=== PATIENT | male | born 1945 | race African-American/Black ===

== ENCOUNTER 2019-01-25 16:22 | Observation (INO) | payer OTHER, MEDICARE ==
--- NOTE | 2019-01-25 17:26 | ER Document Report ---
ED Medical Screen (RME) - General Chief Complaint: Shortness Of Breath Stated Complaint: BREATHING PROBLEMS Time Seen by Provider: 01/25/19 17:20 Mode of Arrival: Wheelchair Information source: Patient Notes: 73-year-old male presented to ED for complaint of shortness of breath and cough. He states he had the symptoms and [facility] started him on steroids and antibiotics. He states he did get feeling better then 3 days ago he got extremely short of breath again. He states he [facility] the [facility] today because he could not walk across the room without losing his breath. [facility] states that the [facility]. I have greeted and performed a rapid initial assessment of this patient. A comprehensive ED assessment and evaluation of the patient, analysis of test results and completion of medical decision making process will be conducted by an additional ED providers. Physical Exam - Vital signs Vitals: Temp Pulse Resp BP Pulse Ox 98.2 F 94 16 152/86 H 94 01/25/19 16:43 01/25/19 16:43 01/25/19 16:43 01/25/19 16:43 01/25/19 16:43 Course - Vital Signs Vital signs: Temp Pulse Resp BP Pulse Ox 98.2 F 94 16 152/86 H 94 01/25/19 16:43 01/25/19 16:43 01/25/19 16:43 01/25/19 16:43 01/25/19 16:43
[2019-01-25] MEDS ORDERED: ASPIRIN 81 MG TABLET, CHEWABLE PO ONE (17:28)
--- NOTE | 2019-01-25 17:59 | RADIOLOGY REPORT (SQ) ---
EXAM DESCRIPTION: CHEST 2 VIEWS COMPLETED DATE/TIME: 01/25/2019 5:44 pm REASON FOR STUDY: chest pain COMPARISON: None. EXAM PARAMETERS: NUMBER OF VIEWS: two views TECHNIQUE: Digital Frontal and Lateral radiographic views of the chest acquired. RADIATION DOSE: NA LIMITATIONS: none FINDINGS: LUNGS AND PLEURA: Chronic appearing calcific pleural plaques over the right lower chest. No gross acute infiltrates or pleural effusion. No pneumothorax. MEDIASTINUM AND HILAR STRUCTURES: No masses or contour abnormalities. HEART AND VASCULAR STRUCTURES: Borderline cardiomegaly BONES: No acute findings. HARDWARE: None in the chest. OTHER: No other significant finding. IMPRESSION: Chronic appearing right pleural calcific plaques. TECHNICAL DOCUMENTATION: JOB ID: [id number] [employer]- All Rights Reserved Reading location - IP/workstation name: [email or web address]
[2019-01-25 19:05] LABS: APPEARANCE,URINE CLEAR; BILIRUBIN,URINE NEGATIVE (NEGATIVE); COLOR,URINE YELLOW; GLUCOSE, URINE NEGATIVE (NEGATIVE); KETONES,URINE NEGATIVE (NEGATIVE); PROTEIN,URINE NEGATIVE (NEGATIVE); URINE SPECIFIC GRAVITY 1.009; UROBILINOGEN,URINE NEGATIVE mg/dL (<2.0)
[2019-01-25 19:10] LABS: ABSOLUTE BASOPHILS # (AUTO) 0.1 10^3/uL (0.0-0.2); ABSOLUTE EOSINOPHILS # (AUTO) 0.5 10^3/uL (0.0-0.6); ABSOLUTE LYMPHOCYTES (AUTO) 1.8 10^3/uL (0.5-4.7); ABSOLUTE NEUT (AUTO) 4.7 10^3/uL (1.7-8.2); EOSINOPHILS % (AUTO) 6.3 % (0-6); HEMATOCRIT 45.7 % (37.9-51.0); HEMOGLOBIN 15.6 g/dL (13.5-17.0); LYMPHOCYTES % (AUTO) 22.2 % (13-45); MEAN CORPUSCULAR HEMOGLOBIN 31.3 pg (27.0-33.4); MEAN CORPUSCULAR VOLUME 92 fl (80-97); MONOCYTES % (AUTO) 12.5 % (3-13); PLATELET COUNT 216 10^3/uL (150-450); RED BLOOD COUNT 4.97 10^6/uL (4.35-5.55); RED CELL DISTRIBUTION WIDTH 14.4 % (11.5-14.0); TOTAL CELLS COUNTED % (AUTO) 100 %; WHITE BLOOD COUNT 8.1 10^3/uL (4.0-10.5)
[2019-01-25 19:22] LABS: ALBUMIN 4.2 g/dL (3.5-5.0); ALKALINE PHOSPHATASE 76 U/L (38-126); ANION GAP 9 (5-19); ASPARTATE AMINO TRANSFERASE 31 U/L (17-59); BILIRUBIN,DIRECT 0.1 mg/dL (0.0-0.4); BILIRUBIN,TOTAL 0.8 mg/dL (0.2-1.3); BLOOD UREA NITROGEN 10 mg/dL (7-20); CALCIUM 9.4 mg/dL (8.4-10.2); CARBON DIOXIDE 28 mmol/L (22-30); CHLORIDE 104 mmol/L (98-107); GLUCOSE 99 mg/dL (75-110); POTASSIUM 4.3 mmol/L (3.6-5.0)
[2019-01-25 19:35] LABS: NT PRO BNP 29 pg/mL (<125)
[2019-01-25 19:36] LABS: TROPONIN I < 0.012 ng/mL
--- NOTE | 2019-01-25 20:44 | EKG REPORT ---
SEVERITY:- BORDERLINE ECG - SINUS RHYTHM IRBBB : Confirmed by: Marky Linder MD 25-Jan-2019 20:43:31
[2019-01-25] MEDS ORDERED: ALBUTEROL SULFATE 0.083% NEB 2.5 MG/3 ML AMPUL NEB ONE ×2 (21:01→22:35)
[2019-01-25] MEDS ORDERED: METHYLPREDNISOLONE INJ 125 MG/2 ML SDV IV ONE (21:01)
[2019-01-25] MEDS ORDERED: IPRATROPIUM/ALBUTEROL 0.5-2.5 MG/3 ML AMPUL NEB ONE (21:01)
--- NOTE | 2019-01-25 21:11 | ER Document Report ---
ED General - General Chief Complaint: Shortness Of Breath Stated Complaint: BREATHING PROBLEMS Time Seen by Provider: 01/25/19 17:20 Primary Care Provider: SHANNAN,CAMELIA [Primary Care Provider] - Follow up as needed Mode of Arrival: Wheelchair Notes: 73-year-old male presents emergency department complaining of worsening shortness of breath. Patient states that 2 to 3 weeks ago he developed chest congestion and tightness in his chest along with productive cough, he was treated with prednisone, antibiotics and an inhaler all of which improved his symptoms briefly but then they worsened 3 days ago. Patient states that he is now continuing to have chest congestion and tightness in his chest but denies any pain. Admits productive cough. Denies any fever. Denies any history of asthma or COPD. Patient was sent here by his primary care provider. - Related Data Allergies/Adverse Reactions: corn Adverse Reaction (Verified 01/25/19 17:25) orange Adverse Reaction (Verified 01/25/19 17:25) Past Medical History - General Information source: Patient - Social History Smoking Status: Never Smoker Frequency of alcohol use: None Drug Abuse: None Family History: Reviewed & Not Pertinent Patient has suicidal ideation: No Patient has homicidal ideation: No Pulmonary Medical History: Reports: Hx Asthma, Hx COPD Review of Systems - Review of Systems Constitutional: No symptoms reported EENT: Nose congestion, Nose discharge Cardiovascular: See HPI, Dyspnea. denies: Chest pain, Palpitations, Heart racing, Orthopnea, Syncope Respiratory: See HPI, Cough, Short of breath Gastrointestinal: No symptoms reported -: Yes All other systems reviewed and negative Physical Exam - Vital signs Vitals: Temp Pulse Resp BP Pulse Ox 98.2 F 94 16 152/86 H 94 01/25/19 16:43 01/25/19 16:43 01/25/19 16:43 01/25/19 16:43 01/25/19 16:43 Interpretation: Hypertensive - Notes Notes: GENERAL: Alert, interacts well. No acute distress. HEAD: Normocephalic, atraumatic EYES: Pupils equal, round and reactive to light, extraocular movements intact. ENT: Oral mucosa moist, tongue midline. NECK: Full range of motion, supple, trachea midline. LUNGS: Tachypnea, diffuse expiratory wheezing, occasional use of accessory muscles of respiration, wet cough, appears short of breath. HEART: Regular rate and rhythm, no murmurs, gallops, rubs. ABDOMEN: Soft, nontender, nondistended, bowel sounds present in all 4 quadrants. EXTREMITIES: Moves all 4 extremities spontaneously, trace pitting edema, radial and dorsalis pedis pulses 2/4 bilaterally. No cyanosis. NEUROLOGICAL: Alert and oriented x3, normal speech. PSYCH: Normal mood, normal affect. SKIN: Warm, Dry. Course - Re-evaluation Re-evalutation: 01/26/19 00:12 CBC unremarkable, CMP unremarkable, troponin negative, proBNP normal, urinalysis unremarkable, chest x-ray shows chronic right pleural plaquing. Patient is hypoxic on ambulation despite multiple breathing treatments. Mild persistent wheezing remains. Discussed with Dr. Carolina, admitted to the medical floor. - Vital Signs Vital signs: Temp Pulse Resp BP Pulse Ox 98.7 F 94 12 117/83 93 01/25/19 19:55 01/25/19 16:43 01/25/19 22:00 01/25/19 21:50 01/25/19 22:00 - Laboratory Result Diagrams: 01/25/19 18:30 01/25/19 18:30 Laboratory results interpreted by me: 01/25/19 18:30 RDW 14.4 H Eos % (Auto) 6.3 H - EKG Interpretation by Me Additional EKG results interpreted by me: 01/25/19 21:11 Hypokalemia EKG shows sinus rhythm at a rate 95, incomplete right bundle branch block, no ST segment elevations or depressions, isolated T wave inversions in V2, 1 PAC per my interpretation. Critical Care Note - Critical Care Note Total time excluding time spent on procedures (mins): 35 Discharge - Discharge Clinical Impression: Bronchitis with bronchospasm, Acute respiratory failure with hypoxia Condition: Fair Disposition: ADMITTED INPATIENT Admitting Provider: Ge (Hospitalist) Unit Admitted: Medical Floor [facility] - Follow up as needed
[2019-01-26] MEDS ORDERED: PROMETHAZINE HCL INJ 25 MG/1 ML VIAL IV PRN (01:19)
[2019-01-26] MEDS ORDERED: LEVALBUTEROL HCL NEB 0.63 MG/3 ML AMPUL NEB PRN (01:19)
[2019-01-26] MEDS ORDERED: MAG HYDROX/AL HYDROX/SIMETH SUSP 30 ML UDCUP PO PRN (01:19)
[2019-01-26] MEDS ORDERED: MAGNESIUM HYDROXIDE SUSP 30 ML UDCUP PO PRN (01:19)
[2019-01-26] MEDS ORDERED: HYDRALAZINE HCL INJ/PF 20 MG/1 ML SDV IV PRN (01:23)
[2019-01-26] MEDS ORDERED: ACETAMINOPHEN 325 MG TABLET PO PRN (01:23)
[2019-01-26] MEDS ORDERED: NICOTINE 21 MG/24 HR PATCH.TD24 TD PRN (01:23)
[2019-01-26] MEDS ORDERED: NALBUPHINE HCL INJ 10 MG/1 ML AMPULE IV PRN ×3 (01:23→01:49)
[2019-01-26] MEDS: METHYLPREDNISOLONE INJ 40 MG/1 ML SDV IV SCH ×3 (02:21→13:45)
[2019-01-26] MEDS ORDERED: GUAIFENESIN SYRP 200 MG/10 ML UDC PO PRN (02:26)
--- NOTE | 2019-01-26 04:52 | PDOC H&P ---
History of Present Illness Admission Date/PCP: 01/26/19 00:17 [facility] Patient complains of: Dyspnea History of Present Illness: COLEMAN WEINSTEIN is a 73 year old male who presented to the emergency room with a 3-week history of dyspnea. He admits to a gradually worsening dyspnea accompanied by chest congestion, nasal congestion, chest tightness and a cough productive of thick purulent yellow to green sputum over the course of the last 3 weeks. His dyspnea worsened with physical activity. [facility] was [facility] with an oral antibiotic, prednisone tablets and an inhaler which seemed to improve his symptoms, but after completion of his prescription 3 days ago he noted the return of symptoms with progressive worsening. He denies other associated or accompanying signs and symptoms. He denies prior similar episodes. He has not identified any additional aggravating or ameliorating factors for his dyspnea. In the emergency room he was found to have acute hypoxic respiratory failure and marked wheezing. He was treated with nebulizer therapy and steroids but continued to be hypoxic on exertion and was subsequently admitted to hospital for further evaluation treatment. Past Medical History Cardiac Medical History: Denies: Coronary Artery Disease, Hypertension Pulmonary Medical History: Reports: Asthma, Chronic Obstructive Pulmonary Disease (COPD) EENT Medical History: Denies: Cataracts, Ears - Hearing aids Neurological Medical History: Denies: Hemorrhagic CVA, Ischemic CVA, Seizures Endocrine Medical History: Reports: Obesity Denies: Diabetes Mellitus Type 1, Diabetes Mellitus Type 2, Hyperthyroidism, Hypothyroidism Renal/ Medical History: Denies: Chronic Kidney Disease, Nephrolithiasis Malignancy Medical History: Reports: None GI Medical History: Denies: Cirrhosis, Crohn's Disease, Hepatitis, Ulcerative Colitis Musculoskeltal Medical History: Denies: Arthritis, Fibromyalgia, Gout Skin Medical History: Denies: Eczema, Psoriasis Psychiatric Medical History: Denies: Alcohol Dependency, Substance Abuse, Tobacco Dependency Traumatic Medical History: Reports: None Hematology: Denies: Anemia, Bleeding Tendencies Infectious Medical History: Reports: None Past Surgical History Past Surgical History: Reports: None Social History Information Source: Patient Lives with: Friend Smoking Status: Never Smoker Electronic Cigarette use?: No Frequency of Alcohol Use: Rare Hx Recreational Drug Use: No Drugs: None Hx Prescription Drug Abuse: No - Advance Directive Resuscitation Status: Full Code Surrogate healthcare decision maker:: Teresa Evans Family History Family History: denies: CAD, DM, Hypertension, Malignancy Parental Family History Reviewed: Yes Children Family History Reviewed: No Sibling(s) Family History Reviewed.: Yes Medication/Allergy Allergies/Adverse Reactions: corn Adverse Reaction (Verified 01/25/19 17:25) orange Adverse Reaction (Verified 01/25/19 17:25) Review of Systems Constitutional: ABSENT: chills, fever(s) Eyes: ABSENT: visual disturbances, other - Eye pain Ears: ABSENT: hearing changes, other - Ear pain Nose, Mouth, and Throat: ABSENT: headache(s), mouth pain, sore throat Cardiovascular: PRESENT: as per HPI, dyspnea on exertion. ABSENT: chest pain, edema, orthropnea, palpitations Respiratory: PRESENT: as per HPI, cough, dyspnea, sputum. ABSENT: hemoptysis Gastrointestinal: ABSENT: abdominal pain, constipation, diarrhea, nausea, vomiting Genitourinary: ABSENT: dysuria, hematuria Musculoskeletal: ABSENT: back pain, joint swelling, muscle weakness Integumentary: ABSENT: pruritus, rash Neurological: ABSENT: confusion, convulsions, focal weakness, memory loss, syncope Psychiatric: ABSENT: anxiety, depression Endocrine: ABSENT: cold intolerance, heat intolerance Hematologic/Lymphatic: ABSENT: easy bleeding, easy bruising Allergic/Immunologic: ABSENT: seasonal rhinorrhea Physical Exam Vital Signs: Temp Pulse Resp BP Pulse Ox 98.5 F 103 H 19 154/86 H 93 01/26/19 01:02 01/26/19 01:02 01/26/19 01:02 01/26/19 01:02 01/26/19 01:02 Intake & Output 01/24/19 01/25/19 01/26/19 23:59 23:59 23:59 Weight 140.4 kg General appearance: PRESENT: no acute distress, cooperative, obese Head exam: PRESENT: atraumatic, normocephalic Eye exam: PRESENT: conjunctiva pink. ABSENT: conjunctival injection, scleral icterus Ear exam: PRESENT: normal external ear exam. ABSENT: bleeding, drainage Mouth exam: PRESENT: dry mucosa, neck supple Neck exam: ABSENT: thyromegaly, tracheal deviation Respiratory exam: PRESENT: prolonged expiratory phas - Minimally prolonged expiratory phase noted throughout all ag[place], symmetrical, wheezes - Minimal expiratory wheezes noted throughout all agudelo Cardiovascular exam: PRESENT: RRR. ABSENT: clicks, gallop, rubs Pulses: PRESENT: normal radial pulses, normal dorsalis pedis pul Vascular exam: PRESENT: normal capillary refill. ABSENT: pallor GI/Abdominal exam: PRESENT: normal bowel sounds, soft. ABSENT: tenderness Rectal exam: PRESENT: deferred Extremities exam: ABSENT: joint swelling, pedal edema Musculoskeletal exam: ABSENT: deformity, dislocation Neurological exam: PRESENT: alert, oriented to person, oriented to place, oriented to time, oriented to situation, CN II-XII grossly intact. ABSENT: motor sensory deficit Psychiatric exam: PRESENT: appropriate affect, normal mood Skin exam: PRESENT: dry, intact, warm. ABSENT: jaundice, rash, urticaria Results Laboratory Results: 01/25/19 18:30 01/25/19 18:30 01/25/19 01/25/19 01/25/19 18:15 18:30 18:30 WBC 8.1 RBC 4.97 Hgb 15.6 Hct 45.7 MCV 92 MCH 31.3 MCHC 34.0 RDW 14.4 H Plt Count 216 Seg Neutrophils % 58.0 Sodium 140.8 Potassium 4.3 Chloride 104 Carbon Dioxide 28 Anion Gap 9 BUN 10 Creatinine 0.98 Est GFR ( Amer) > 60 Glucose 99 Calcium 9.4 Magnesium 2.1 Total Bilirubin 0.8 AST 31 Alkaline Phosphatase 76 Total Protein 7.0 Albumin 4.2 Lipase 62.7 Urine Color YELLOW Urine Appearance CLEAR Urine pH 6.0 Ur Specific [place] 1.009 Urine Protein NEGATIVE Urine Glucose (UA) NEGATIVE Urine Ketones NEGATIVE Urine Blood NEGATIVE Urine RBC (Auto) 0 01/25/19 18:30 Troponin I < 0.012 NT-Pro-B Natriuret Pep 29 Impressions: Chest X-Ray 01/25/19 17:26 IMPRESSION: Chronic appearing right pleural calcific plaques. Assessment and Plan - Diagnosis (1) Bronchitis with bronchospasm Is this a current diagnosis for this admission?: Yes (2) Acute respiratory failure with hypoxia Is this a current diagnosis for this admission?: Yes (3) Cough Is this a current diagnosis for this admission?: Yes (4) Obesity (BMI 30-39.9) Is this a current diagnosis for this admission?: Yes - Plan Summary Summary: Patient is admitted to medical floor where he will receive routine supportive and symptomatic cares. He will be treated with an aggressive pulmonary toilet utilizing Xopenex, Atrovent and Pulmicort delivered via nebulizer. He will also be treated with a short burst dose of IV Solu-Medrol. He will receive supplemental oxygen as required to maintain an O2 sat greater than 93%. He will use Nubain 5 to 10 mg IV every 3 hours on an as-needed basis for control of any pain. He will receive Robitussin as needed for cough. A CBC and basic metabolic profile will be obtained as appropriate. - Time Time Spent with patient: 25-34 minutes Medications reviewed and adjusted accordingly: Yes Anticipated discharge: Home - Inpatient Certification Based on my medical assessment, after consideration of the patient's comorbidities, presenting symptoms, or acuity I expect that the services needed warrant INPATIENT care.: Yes I certify that my determination is in accordance with my understanding of Medicare's requirements for reasonable and necessary INPATIENT services [42 CFR 412.3e].: Yes Medical Necessity: Need Close Monitoring Due to Risk of Patient Decompensation, Need for Nebulizer Therapy and Monitoring of Response, Risk of Complication if Not Cared For in Hospital
[2019-01-26] MEDS: HEPARIN SOD (PORCINE) 5,000 UNIT/ML 1 ML VIAL SUBCUT SCH ×3 (05:25→22:20)
[2019-01-26] MEDS: LEVALBUTEROL HCL NEB 1.25 MG/3 ML AMPUL NEB SCH ×2 (08:23→17:59)
[2019-01-26] MEDS: BUDESONIDE NEB 0.5 MG/2 ML AMPUL NEB SCH ×2 (08:23→20:29)
[2019-01-26] MEDS: IPRATROPIUM BROMIDE 0.02% NEB 0.5 MG/2.5 ML AMPUL NEB SCH ×2 (08:25→17:59)
--- NOTE | 2019-01-26 08:39 | Progress Note ---
Provider Note Provider Note: 01/26/2019-patient june early a.m. I have evaluated patient will continue to follow make changes plan of care as necessary
[2019-01-26] MEDS: FAMOTIDINE 20 MG TABLET PO SCH ×2 (09:07→22:20)
[2019-01-26] MEDS: DOCUSATE SODIUM 100 MG CAPSULE PO SCH ×2 (09:07→17:13)
[2019-01-27] MEDS: IPRATROPIUM BROMIDE 0.02% NEB 0.5 MG/2.5 ML AMPUL NEB SCH ×2 (00:26→08:58)
[2019-01-27] MEDS: LEVALBUTEROL HCL NEB 1.25 MG/3 ML AMPUL NEB SCH ×2 (00:26→08:58)
[2019-01-27] MEDS: HEPARIN SOD (PORCINE) 5,000 UNIT/ML 1 ML VIAL SUBCUT SCH (05:18)
[2019-01-27 07:15] LABS: HEMATOCRIT 46.2 % (37.9-51.0); HEMOGLOBIN 15.6 g/dL (13.5-17.0); MEAN CORPUSCULAR HEMOGLOBIN 31.3 pg (27.0-33.4); MEAN CORPUSCULAR HGB CONC 33.7 g/dL (32.0-36.0); MEAN CORPUSCULAR VOLUME 93 fl (80-97); PLATELET COUNT 228 10^3/uL (150-450); RED BLOOD COUNT 4.97 10^6/uL (4.35-5.55); RED CELL DISTRIBUTION WIDTH 14.5 % (11.5-14.0); WHITE BLOOD COUNT 12.9 10^3/uL (4.0-10.5)
[2019-01-27 07:51] LABS: ANION GAP 12 (5-19); BLOOD UREA NITROGEN 14 mg/dL (7-20); CALCIUM 10.1 mg/dL (8.4-10.2); CARBON DIOXIDE 28 mmol/L (22-30); CHLORIDE 101 mmol/L (98-107); GLUCOSE 119 mg/dL (75-110); POTASSIUM 4.8 mmol/L (3.6-5.0)
[2019-01-27 08:39] VITALS: BP 160/98
--- NOTE | 2019-01-27 08:43 | PDOC DISCHARGE SUMMARY ---
Impression - Admit/DC Date/PCP Admission Date/Primary Care Provider: 01/26/19 00:17 [facility] Discharge Date: 01/27/19 - Discharge Diagnosis (1) Acute respiratory failure with hypoxia Is this a current diagnosis for this admission?: Yes (2) Bronchitis with bronchospasm Is this a current diagnosis for this admission?: Yes (3) Cough Is this a current diagnosis for this admission?: Yes (4) Obesity (BMI 30-39.9) Is this a current diagnosis for this admission?: Yes - Assessment Summary: Patient is admitted to medical floor where he will receive routine supportive and symptomatic cares. He will be treated with an aggressive pulmonary toilet utilizing Xopenex, Atrovent and Pulmicort delivered via nebulizer. He will also be treated with a short burst dose of IV Solu-Medrol. He will receive supplemental oxygen as required to maintain an O2 sat greater than 93%. He will use Nubain 5 to 10 mg IV every 3 hours on an as-needed basis for control of any pain. He will receive Robitussin as needed for cough. A CBC and basic metabolic profile will be obtained as appropriate. - Additional Information Resuscitation Status: Full Code Discharge Diet: As Tolerated Discharge Activity: Activity As Tolerated [facility]errals: [facility] [Primary Care Provider] - Follow up as needed Prescriptions: Prednisone [Deltasone 10 mg Tablet] 10 mg PO ASDIR PRN #21 tablet PRN Reason: Albuterol Sulfate [Proair Hfa Inhalation Aerosol 8.5 gm Mdi] 2 puff IH Q4 PRN #1 mdi PRN Reason: Home Medications: Albuterol Sulfate [Proair Hfa Inhalation Aerosol 8.5 gm Mdi] 2 puff IH Q4 PRN #1 mdi 01/27/19 Prednisone [Deltasone 10 mg Tablet] 10 mg PO ASDIR PRN #21 tablet 01/27/19 History of Present Illiness History of Present Illness: COLEMAN WEINSTEIN is a 73 year old male who presented to the ER with shortness of breath. Hospital Course Hospital Course: Patient presented emergency department with 3-week history of dyspnea. Patient states gradually worsened with the shortness of breath accompanied by chest congestion, nasal congestion, chest tightness and productive cough of thick purulent yellow to greenish sputum. States this dyspnea was worse with exertion. He was treated the [facility] oral antibiotics, prednisone tablets and inhaler which seemed to improve his symptoms but after completion of his prescriptions symptoms returned. He denied any other accompanying signs or symptoms. He was admitted for observation. Was given bronchodilators and steroids. Patient's presentation return home. He will have follow-up with primary care within 1 week. I have sent in a prescription for a prednisone Dosepak and pro-air. Physical Exam Vital Signs: Temp Pulse Resp BP Pulse Ox 97.6 F 81 16 160/98 H 94 01/27/19 08:00 01/27/19 08:00 01/27/19 08:00 01/27/19 08:00 01/27/19 08:00 Intake & Output 01/26/19 01/27/19 01/28/19 06:59 06:59 06:59 Intake Total 1216 Balance 1216 Weight 140 kg General appearance: PRESENT: no acute distress, well-developed, well-nourished Head exam: PRESENT: atraumatic, normocephalic Eye exam: PRESENT: conjunctiva pink, EOMI, PERRLA. ABSENT: scleral icterus Ear exam: PRESENT: normal external ear exam Mouth exam: PRESENT: moist, tongue midline Neck exam: ABSENT: carotid bruit, JVD, lymphadenopathy, thyromegaly Respiratory exam: PRESENT: clear to auscultation marysol. ABSENT: rales, rhonchi, wheezes Cardiovascular exam: PRESENT: RRR. ABSENT: diastolic murmur, rubs, systolic murmur Pulses: PRESENT: normal dorsalis pedis pul Vascular exam: PRESENT: normal capillary refill GI/Abdominal exam: PRESENT: normal bowel sounds, soft. ABSENT: distended, guarding, mass, organolmegaly, rebound, tenderness Rectal exam: PRESENT: deferred Extremities exam: PRESENT: full ROM. ABSENT: calf tenderness, clubbing, pedal edema Neurological exam: PRESENT: alert, awake, oriented to person, oriented to place, oriented to time, oriented to situation, CN II-XII grossly intact. ABSENT: motor sensory deficit Psychiatric exam: PRESENT: appropriate affect, normal mood. ABSENT: homicidal ideation, suicidal ideation Skin exam: PRESENT: dry, intact, warm. ABSENT: cyanosis, rash Results Laboratory Results: WBC 12.9 10^3/uL (4.0-10.5) H 01/27/19 06:59 RBC 4.97 10^6/uL (4.35-5.55) 01/27/19 06:59 Hgb 15.6 g/dL (13.5-17.0) 01/27/19 06:59 Hct 46.2 % (37.9-51.0) 01/27/19 06:59 MCV 93 fl (80-97) 01/27/19 06:59 MCH 31.3 pg (27.0-33.4) 01/27/19 06:59 MCHC 33.7 g/dL (32.0-36.0) 01/27/19 06:59 RDW 14.5 % (11.5-14.0) H 01/27/19 06:59 Plt Count 228 10^3/uL (150-450) 01/27/19 06:59 Lymph % (Auto) 22.2 % (13-45) 01/25/19 18:30 [place] % (Auto) 12.5 % (3-13) 01/25/19 18:30 Eos % (Auto) 6.3 % (0-6) H 01/25/19 18:30 Baso % (Auto) 1.0 % (0-2) 01/25/19 18:30 Absolute Neuts (auto) 4.7 10^3/uL (1.7-8.2) 01/25/19 18:30 Absolute Lymphs (auto) 1.8 10^3/uL (0.5-4.7) 01/25/19 18:30 Absolute Monos (auto) 1.0 10^3/uL (0.1-1.4) 01/25/19 18:30 Absolute Eos (auto) 0.5 10^3/uL (0.0-0.6) 01/25/19 18:30 Absolute Basos (auto) 0.1 10^3/uL (0.0-0.2) 01/25/19 18:30 Seg Neutrophils % 58.0 % (42-78) 01/25/19 18:30 Sodium 140.6 mmol/L (137-145) 01/27/19 06:59 Potassium 4.8 mmol/L (3.6-5.0) 01/27/19 06:59 Chloride 101 mmol/L (98-107) 01/27/19 06:59 Carbon Dioxide 28 mmol/L (22-30) 01/27/19 06:59 Anion Gap 12 (5-19) 01/27/19 06:59 BUN 14 mg/dL (7-20) 01/27/19 06:59 Creatinine 1.01 mg/dL (0.52-1.25) 01/27/19 06:59 Est GFR ( Amer) > 60 (>60) 01/27/19 06:59 Est GFR (MDRD) Non-Af > 60 (>60) 01/27/19 06:59 Glucose 119 mg/dL (75-110) H 01/27/19 06:59 Calcium 10.1 mg/dL (8.4-10.2) 01/27/19 06:59 Magnesium 2.4 mg/dL (1.6-2.3) H 01/27/19 06:59 Total Bilirubin 0.8 mg/dL (0.2-1.3) 01/25/19 18:30 Direct Bilirubin 0.1 mg/dL (0.0-0.4) 01/25/19 18:30 Neonat Total Bilirubin Not Reportable 01/25/19 18:30 Neonat Direct Bilirubin Not Reportable 01/25/19 18:30 Neonat Indirect Bili Not Reportable 01/25/19 18:30 AST 31 U/L (17-59) 01/25/19 18:30 ALT 40 U/L (<50) 01/25/19 18:30 Alkaline Phosphatase 76 U/L (38-126) 01/25/19 18:30 Troponin I < 0.012 ng/mL 01/25/19 18:30 NT-Pro-B Natriuret Pep 29 pg/mL (<125) 01/25/19 18:30 Total Protein 7.0 g/dL (6.3-8.2) 01/25/19 18:30 Albumin 4.2 g/dL (3.5-5.0) 01/25/19 18:30 Lipase 62.7 U/L (23-300) 01/25/19 18:30 Urine Color YELLOW 01/25/19 18:15 Urine Appearance CLEAR 01/25/19 18:15 Urine pH 6.0 (5.0-9.0) 01/25/19 18:15 Ur Specific [place] 1.009 01/25/19 18:15 Urine Protein NEGATIVE mg/dL (NEGATIVE) 01/25/19 18:15 Urine Glucose (UA) NEGATIVE mg/dL (NEGATIVE) 01/25/19 18:15 Urine Ketones NEGATIVE mg/dL (NEGATIVE) 01/25/19 18:15 Urine Blood NEGATIVE (NEGATIVE) 01/25/19 18:15 Urine Nitrite (Reflex) NEGATIVE (NEGATIVE) 01/25/19 18:15 Urine Bilirubin NEGATIVE (NEGATIVE) 01/25/19 18:15 Urine Urobilinogen NEGATIVE mg/dL (<2.0) 01/25/19 18:15 Leukocyte Esterase Rfl NEGATIVE (NEGATIVE) 01/25/19 18:15 Urine RBC (Auto) 0 /HPF 01/25/19 18:15 Urine WBC (Reflex) 2 /HPF 01/25/19 18:15 Squamous Epi Cells Auto <1 /HPF 01/25/19 18:15 Urine Mucus (Auto) RARE /LPF 01/25/19 18:15 Urine Ascorbic Acid NEGATIVE (NEGATIVE) 01/25/19 18:15 01/25/19 18:30 Troponin I < 0.012 NT-Pro-B Natriuret Pep 29 Impressions: Chest X-Ray 01/25/19 17:26 IMPRESSION: Chronic appearing right pleural calcific plaques. Plan Time Spent: Greater than 30 Minutes Stroke Is this a Stroke Patient?: No Acute Heart Failure - Is this a Heart Failure Patient?: No
[2019-01-27] MEDS: BUDESONIDE NEB 0.5 MG/2 ML AMPUL NEB SCH (08:58)
[2019-01-27] MEDS: FAMOTIDINE 20 MG TABLET PO SCH (10:49)
[2019-01-27] MEDS: DOCUSATE SODIUM 100 MG CAPSULE PO SCH (10:49)
== END 2019-01-27 12:30 | disposition home or self-care (01) ==
LOC: ER 16:22 → EH 01-26 00:17 → INTOOBSV 01-26 00:17 → 4S 01-26 01:58
PROVIDERS: ADMIT Emergency Medicine; ATTEND Emergency Medicine
DX: J96.01 Acute respiratory failure with hypoxia (principal); J20.9 Acute bronchitis, unspecified; E66.9 Obesity, unspecified; I45.10 Unspecified right bundle-branch block; E87.6 Hypokalemia; R03.0 Elevated blood-pressure reading, without diagnosis of hypertension; Z68.39 Body mass index [BMI] 39.0-39.9, adult
CPT/HCPCS: 93005; 94640 ×4; 99291; 96374; 36415 ×2; 83690; 83735 ×2; 85025; 85027; 80048; 80053; 81001; 84484; 83880; 71046; 93010; G0378 ×3; J2920; J2930; J3490 ×5; J7620

== ENCOUNTER 2019-02-17 15:24 | Inpatient (IN) | payer OTHER, MEDICARE ==
[2019-02-17] MEDS ORDERED: IPRATROPIUM/ALBUTEROL 0.5-2.5 MG/3 ML AMPUL NEB ONE (16:31)
[2019-02-17] MEDS ORDERED: METHYLPREDNISOLONE INJ 125 MG/2 ML SDV IV ONE (16:31)
--- NOTE | 2019-02-17 16:32 | ER Document Report ---
ED Medical Screen (RME) - General Chief Complaint: Shortness Of Breath Stated Complaint: TROUBLE BREATHIING Time Seen by Provider: 02/17/19 16:30 Primary Care Provider: CAMELIA CAMPBELL [Primary Care Provider] - Follow up as needed Information source: Patient Notes: Patient presents complaining of difficulty breathing with exertion for the past week. Patient reports occasional cough. Patient denies any chest pain or fever. Patient does report wheezing. Patient denies any significant medical history aside from hypertension although does report that he was recently admitted for breathing problems. Patient denies any history of asthma or COPD. I have greeted and performed a rapid initial assessment of this patient. A comprehensive ED assessment and evaluation of the patient, analysis of test results and completion of the medical decision making process will be conducted by additional ED providers. TRAVEL OUTSIDE OF THE [place] IN LAST 30 DAYS: No - Related Data Allergies/Adverse Reactions: corn Adverse Reaction (Verified 01/25/19 17:25) orange Adverse Reaction (Verified 01/25/19 17:25) Past Medical History - Past Medical History Cardiac Medical History: Denies: Hx Coronary Artery Disease, Hx Hypertension Pulmonary Medical History: Reports: Hx Asthma, Hx COPD Neurological Medical History: Denies: Hx Seizures Endocrine Medical History: Denies: Hx Diabetes Mellitus Type 1, Hx Diabetes Mellitus Type 2, Hx Hyperthyroidism, Hx Hypothyroidism GI Medical History: Denies: Hx Cirrhosis, Hx Crohn's Disease, Hx Hepatitis, Hx Ulcerative Colitis Musculoskeltal Medical History: Denies Hx Arthritis, Denies Hx Fibromyalgia, Denies Hx Gout Skin Medical History: Denies Hx Eczema, Denies Hx Psoriasis Infectious Medical History: Denies: Hx Hepatitis Physical Exam - Respiratory Respiratory status: Tachypnea. No: Labored Breath sounds: Nonproductive cough, Wheezing Doctor's Discharge - Discharge Referrals: [facility] [[facility]] - Follow up as needed
[2019-02-17] MEDS: ALBUTEROL SULFATE 0.083% NEB 2.5 MG/3 ML AMPUL NEB SCH ×2 (16:54→17:08)
--- NOTE | 2019-02-17 17:17 | RADIOLOGY REPORT (SQ) ---
EXAM DESCRIPTION: CHEST 2 VIEWS COMPLETED DATE/TIME: 02/17/2019 5:02 pm REASON FOR STUDY: cough, sob COMPARISON: 01/25/2019 TECHNIQUE: Frontal and lateral radiographic views of the chest acquired. NUMBER OF VIEWS: Two view. LIMITATIONS: None. FINDINGS: LUNGS AND PLEURA: No pneumothorax. No acute findings. Similar right pleural calcific thi ckening and bilateral parenchymal - interstitial changes. . MEDIASTINUM AND HILAR STRUCTURES: Stable. HEART AND VASCULAR STRUCTURES: Stable. BONES: No acute findings. HARDWARE: None in the chest. OTHER: No other significant finding. IMPRESSION: NO ACUTE FINDINGS. TECHNICAL DOCUMENTATION: JOB ID: [id number] [id number] 2010 [employer]- All Rights Reserved Reading location - IP/workstation name: [email or web address]
[2019-02-17 19:00] LABS: ABSOLUTE BASOPHILS # (AUTO) 0.1 10^3/uL (0.0-0.2); ABSOLUTE EOSINOPHILS # (AUTO) 0.4 10^3/uL (0.0-0.6); ABSOLUTE LYMPHOCYTES (AUTO) 1.4 10^3/uL (0.5-4.7); ABSOLUTE MONOCYTES (AUTO) 0.7 10^3/uL (0.1-1.4); BASOPHILS % (AUTO) 0.9 % (0-2); HEMATOCRIT 44.3 % (37.9-51.0); HEMOGLOBIN 15.1 g/dL (13.5-17.0); LYMPHOCYTES % (AUTO) 21.9 % (13-45); MEAN CORPUSCULAR HEMOGLOBIN 31.7 pg (27.0-33.4); MEAN CORPUSCULAR HGB CONC 34.1 g/dL (32.0-36.0); MEAN CORPUSCULAR VOLUME 93 fl (80-97); MONOCYTES % (AUTO) 10.8 % (3-13); PLATELET COUNT 198 10^3/uL (150-450); RED BLOOD COUNT 4.76 10^6/uL (4.35-5.55); RED CELL DISTRIBUTION WIDTH 14.7 % (11.5-14.0); SEGMENTED NEUTROPHILS % (AUTO) 60.4 % (42-78); TOTAL CELLS COUNTED % (AUTO) 100 %; WHITE BLOOD COUNT 6.6 10^3/uL (4.0-10.5)
[2019-02-17 19:11] LABS: ALBUMIN 4.1 g/dL (3.5-5.0); ALKALINE PHOSPHATASE 83 U/L (38-126); ANION GAP 9 (5-19); ASPARTATE AMINO TRANSFERASE 34 U/L (17-59); BILIRUBIN,DIRECT 0.2 mg/dL (0.0-0.4); BILIRUBIN,TOTAL 0.6 mg/dL (0.2-1.3); BLOOD UREA NITROGEN 14 mg/dL (7-20); CALCIUM 9.7 mg/dL (8.4-10.2); CARBON DIOXIDE 27 mmol/L (22-30); CHLORIDE 105 mmol/L (98-107); GLUCOSE 103 mg/dL (75-110); POTASSIUM 4.1 mmol/L (3.6-5.0); TOTAL PROTEIN 6.9 g/dL (6.3-8.2)
[2019-02-17 19:22] LABS: NT PRO BNP 32 pg/mL (<125)
[2019-02-17 19:24] LABS: TROPONIN I < 0.012 ng/mL
[2019-02-17] MEDS ORDERED: METHYLPREDNISOLONE INJ 125 MG/2 ML SDV ONE (19:33)
--- NOTE | 2019-02-17 19:51 | EKG REPORT ---
SEVERITY:- ABNORMAL ECG - SINUS RHYTHM EARLY TRANSITION, NEED TO CONSIDER OLD TRUE POST LA. : Confirmed by: Marky Linder MD 17-Feb-2019 19:51:03
[2019-02-17] MEDS ORDERED: ALBUTEROL SULFATE 0.083% NEB 2.5 MG/3 ML AMPUL NEB ONE (20:34)
--- NOTE | 2019-02-17 20:44 | ER Document Report ---
ED Respiratory Problem - General Chief Complaint: Shortness Of Breath Stated Complaint: TROUBLE BREATHIING Time Seen by Provider: 02/17/19 16:30 Primary Care Provider: SHANNAN,CAMELIA [Primary Care Provider] - Follow up as needed Mode of Arrival: Ambulatory Information source: Patient Notes: Patient presents complaining of difficulty breathing with exertion for the past week. Patient reports occasional cough but has noticed wheezing. Patient denies any chest pain or fever. Patient denies any history of lung problems although states he does have an inhaler to help when he has wheezing at home. TRAVEL OUTSIDE OF THE [place] IN LAST 30 DAYS: No - HPI Patient complains to provider of: Cough, Short of breath Onset: Last week Pain Level: Denies Context: denies: Recent immobilization, Recent surgery Cough: Nonproductive Associated symptoms: Cough, Short of breath, Wheezing. denies: Congestion Similar symptoms previously: Yes Recently seen / treated by doctor: Yes - Related Data Allergies/Adverse Reactions: corn Adverse Reaction (Verified 01/25/19 17:25) orange Adverse Reaction (Verified 01/25/19 17:25) Past Medical History - General Information source: Patient - Social History Smoking Status: Unknown if Ever Smoked Frequency of alcohol use: None Drug Abuse: None Lives with: Spouse/Significant other Family History: denies: CAD, DM, Hypertension, Malignancy Patient has suicidal ideation: No Patient has homicidal ideation: No - Past Medical History Cardiac Medical History: Reports: Hx Hypertension Pulmonary Medical History: Denies: Hx Asthma, Hx COPD - pt denies, Hx Intubation Neurological Medical History: Denies: Hx Seizures Endocrine Medical History: Denies: Hx Diabetes Mellitus Type 1, Hx Diabetes Mellitus Type 2, Hx Hyperthyroidism, Hx Hypothyroidism Skin Medical History: Denies Hx Eczema, Denies Hx Psoriasis Surgical Hx: Negative Review of Systems - Review of Systems Constitutional: No symptoms reported. denies: Fever, Recent illness EENT: No symptoms reported Cardiovascular: Dyspnea. denies: Chest pain Respiratory: Cough, Short of breath, Wheezing. denies: Hurts to breathe Gastrointestinal: No symptoms reported. denies: Abdominal pain, Vomiting Genitourinary: No symptoms reported Male Genitourinary: No symptoms reported Musculoskeletal: No symptoms reported. denies: Back pain Skin: No symptoms reported Hematologic/Lymphatic: No symptoms reported Neurological/Psychological: No symptoms reported Physical Exam - Vital signs Vitals: Temp Pulse Resp BP Pulse Ox 97.2 F 108 H 16 139/80 H 93 02/17/19 16:01 02/17/19 16:01 02/17/19 16:01 02/17/19 16:01 02/17/19 16:01 - General General appearance: Alert In distress: Mild - HEENT Head: Normocephalic, Atraumatic Eyes: Normal Conjunctiva: Normal Nasal: Normal Mouth/Lips: Normal Mucous membranes: Normal Neck: Normal, Supple. No: Lymphadenopathy - Respiratory Respiratory status: Labored, Tachypnea Chest status: Nontender Breath sounds: Nonproductive cough, Wheezing Chest palpation: Normal - Cardiovascular Rhythm: Regular Heart sounds: S1 appreciated, S2 appreciated Murmur: No - Abdominal Inspection: Morbidly Obese Distension: No distension Bowel sounds: Normal Tenderness: Nontender Organomegaly: No organomegaly - Back Back: Normal, Nontender - Extremities General upper extremity: Normal inspection, Normal strength General lower extremity: Edema - 1+ bilat, Normal strength - Neurological Neuro grossly intact: Yes Cognition: Normal Janice Coma Scale Eye Opening: Spontaneous Sanborn Coma Scale Verbal: Oriented Janice Coma Scale Motor: Obeys Commands Janice Coma Scale Total: 15 - Psychological Associated symptoms: Normal affect, Normal mood - Skin Skin Temperature: Warm Skin Moisture: Dry Skin Color: Normal Course - Re-evaluation Re-evalutation: 02/17/19 22:44 Patient continues with tachypnea and diffuse bilateral wheezing. Patient states that he feels as though he is breathing somewhat easier although denies any resolution of the wheezing symptoms. 02/17/19 23:[address] in the hallway, oxygen saturation dropped to 89% and heart rate increased to 115 with continued tachypnea. Consulted with hospitalist, Dr. Langley, for admission who agrees to accept patient as a telemetry observation at this time. - Vital Signs Vital signs: Temp Pulse Resp BP Pulse Ox 98 F 108 H 24 H 149/93 H 97 02/17/19 20:39 02/17/19 16:01 02/17/19 20:25 02/17/19 20:25 02/17/19 20:25 - Laboratory Result Diagrams: 02/17/19 18:39 02/17/19 18:39 Laboratory results interpreted by me: 02/17/19 02/17/19 02/17/19 18:39 18:39 18:39 RDW 14.7 H D-Dimer 0.54 H ABG pO2 ABG HCO3 ABG Total CO2 Est GFR (MDRD) Non-Af 59 L 02/17/19 21:10 RDW D-Dimer ABG pO2 74.6 L ABG HCO3 26.1 H ABG Total CO2 27.5 H Est GFR (MDRD) Non-Af 02/17/19 23:05 Labs- Entire Visit 02/17/19 02/17/19 02/17/19 18:39 18:39 18:39 WBC 6.6 RBC 4.76 Hgb 15.1 Hct 44.3 MCV 93 MCH 31.7 MCHC 34.1 RDW 14.7 H Plt Count 198 Lymph % (Auto) 21.9 [place] % (Auto) 10.8 Eos % (Auto) 6.0 Baso % (Auto) 0.9 Absolute Neuts (auto) 4.0 Absolute Lymphs (auto) 1.4 Absolute Monos (auto) 0.7 Absolute Eos (auto) 0.4 Absolute Basos (auto) 0.1 Seg Neutrophils % 60.4 D-Dimer Carbonic Acid HCO3/H2CO3 Ratio ABG pH ABG pCO2 ABG pO2 ABG HCO3 ABG Total CO2 ABG O2 Saturation ABG Base Excess FiO2 Sodium 140.7 Potassium 4.1 Chloride 105 Carbon Dioxide 27 Anion Gap 9 BUN 14 Creatinine 1.21 Est GFR ( Amer) > 60 Est GFR (MDRD) Non-Af 59 L Glucose 103 Calcium 9.7 Total Bilirubin 0.6 Direct Bilirubin 0.2 Neonat Total Bilirubin Not Reportable Neonat Direct Bilirubin Not Reportable Neonat Indirect Bili Not Reportable AST 34 ALT 32 Alkaline Phosphatase 83 Troponin I < 0.012 NT-Pro-B Natriuret Pep 32 Total Protein 6.9 Albumin 4.1 02/17/19 02/17/19 02/17/19 18:39 21:10 22:11 WBC RBC Hgb Hct MCV MCH MCHC RDW Plt Count Lymph % (Auto) [place] % (Auto) Eos % (Auto) Baso % (Auto) Absolute Neuts (auto) Absolute Lymphs (auto) Absolute Monos (auto) Absolute Eos (auto) Absolute Basos (auto) Seg Neutrophils % D-Dimer 0.54 H Carbonic Acid 1.33 HCO3/H2CO3 Ratio 19:1 ABG pH 7.39 ABG pCO2 44.2 ABG pO2 74.6 L ABG HCO3 26.1 H ABG Total CO2 27.5 H ABG O2 Saturation 94.8 ABG Base Excess 0.8 FiO2 ROOM AIR Sodium Potassium Chloride Carbon Dioxide Anion Gap BUN Creatinine Est GFR ( Amer) Est GFR (MDRD) Non-Af Glucose Calcium Total Bilirubin Direct Bilirubin Neonat Total Bilirubin Neonat Direct Bilirubin Neonat Indirect Bili AST ALT Alkaline Phosphatase Troponin I < 0.012 NT-Pro-B Natriuret Pep Total Protein Albumin - Diagnostic Test Radiology reviewed: Reports reviewed Discharge - Discharge Clinical Impression: Bronchitis, Wheezing, Hypoxia Condition: Stable Disposition: ADMITTED OBSERVATION Admitting Provider: Shivam (Hospitalist) Unit Admitted: Telemetry [facility]errals: [facility] [[facility] - Follow up as needed
[2019-02-17 21:40] LABS: ARTERIAL BLOOD BASE EXCESS 0.8 mmol/L; ARTERIAL BLOOD H2CO3 1.33 mmol/L (1.05-1.35); ARTERIAL BLOOD HCO3 26.1 mmol/L (20-24); ARTERIAL BLOOD O2 SATURATION 94.8 % (94-98); ARTERIAL BLOOD PCO2 44.2 mmHg (35-45); ARTERIAL BLOOD PH 7.39 (7.35-7.45); ARTERIAL BLOOD PO2 74.6 mmHg (80-100); ARTERIAL BLOOD TOTAL CO2 27.5 mmol/L (23-27)
[2019-02-17 21:43] LABS: ARTERIAL BLOOD FIO2 ROOM AIR
[2019-02-17] MEDS ORDERED: LEVALBUTEROL HCL NEB 1.25 MG/3 ML AMPUL NEB ONE (21:48)
[2019-02-17] MEDS ORDERED: MAGNESIUM SULFATE/D5W 1 GM/100 ML RTUPB IV ONE (22:44)
--- NOTE | 2019-02-17 23:17 | RADIOLOGY REPORT (SQ) ---
EXAM DESCRIPTION: CT CHEST WITH INTRAVENOUS CONTRAST CLINICAL HISTORY: Dyspnea and elevated d-dimer. COMPARISON: None TECHNIQUE: CT of the chest was performed with intravenous contrast using pulmonary embolism protocol, followed by CTA of the pulmonary arterial vasculature, with 3D reconstruction of the pulmonary arterial vasculature. The patient was injected with 65 mL [address]aque. This CT exam was performed according to our departmental dose-optimization program, which includes one or more of the following dose reduction techniques: automated exposure control, adjustment of the mA and/or kV according to patient size, and/or use of iterative reconstruction technique. FINDINGS: Examination is technically limited by the timing of the contrast bolus. There are no filling defects in the main pulmonary trunk, first order or the visualized lower order branches of the bilateral pulmonary arteries, to suggest pulmonary embolism. There is no evidence of clinically significant thoracic aortic aneurysm or thoracic aortic dissection. There is no evidence of clinically significant pericardial effusion. There is relative volume loss of the right hemithorax compared with the left side. Furthermore, there is coarsely calcified pleural thickening predominantly affecting the posterior lateral right pleura. There is no pathologically enlarged axillary, supraclavicular, mediastinal or hilar lymphadenopathy. Calcified left hilar lymph nodes. No suspicious lytic or blastic osseous lesions are identified. The visualized upper abdominal structures demonstrate cholelithiasis. There is likely bilateral renal cortical scarring, incompletely visualized. A small splenule is incidentally noted. IMPRESSION: 1. No CT evidence of significant pulmonary embolism within the technical limitations of this exam. 2. Volume loss of the right hemithorax associated with slightly calcified pleural thickening. Clinical correlation is advised. Consider the possibility of prior asbestos dose exposure.
[2019-02-17] MEDS ORDERED: GUAIFENESIN SYRP 200 MG/10 ML UDC PO PRN (23:57)
[2019-02-17] MEDS ORDERED: ACETAMINOPHEN 325 MG TABLET PO PRN (23:57)
[2019-02-17] MEDS ORDERED: IPRATROPIUM/ALBUTEROL 0.5-2.5 MG/3 ML AMPUL NEB PRN (23:57)
[2019-02-18] MEDS ORDERED: PREDNISONE 20 MG TABLET PO ONE (00:30)
[2019-02-18] MEDS: CHLORPHENIRAMINE MALEATE 4 MG TABLET PO SCH ×4 (00:40→17:11)
[2019-02-18] MEDS: IPRATROPIUM/ALBUTEROL 0.5-2.5 MG/3 ML AMPUL NEB SCH ×3 (00:45→16:20)
[2019-02-18] MEDS ORDERED: AZITHROMYCIN 500 MG in DEXTROSE 5%-WATER 250 ML IV ONE (01:00)
[2019-02-18] MEDS ORDERED: AZITHROMYCIN INJ 500 MG VIAL IV ONE (03:26)
--- NOTE | 2019-02-18 05:30 | PDOC H&P ---
History of Present Illness Admission Date/PCP: 02/18/19 00:[facility] Patient complains of: Shortness of breath and cough History of Present Illness: COLEMAN WEINSTEIN is a 74 year old male with a past medical history of COPD and bronchitis requiring hospitalization 3 weeks ago. He presents with wheeze, exertional dyspnea, rhinorrhea, postnasal drip, shortness of breath. In the emergency department he is found to have hypoxia, tachycardia and leukocytosis. CT reveals calcified pleura without infiltrate or pulmonary emboli. He receives empiric antibiotics for healthcare associated pneumonia and referred to the hospitalist for admission. Past Medical History Cardiac Medical History: Reports: Hypertension Denies: Coronary Artery Disease Pulmonary Medical History: Reports: Bronchitis Denies: Asthma, Chronic Obstructive Pulmonary Disease (COPD) - pt denies, Intubation Neurological Medical History: Denies: Seizures Endocrine Medical History: Denies: Diabetes Mellitus Type 1, Diabetes Mellitus Type 2, Hyperthyroidism, Hypothyroidism GI Medical History: Denies: Cirrhosis, Crohn's Disease, Hepatitis, Ulcerative Colitis Musculoskeltal Medical History: Denies: Arthritis, Fibromyalgia, Gout Skin Medical History: Denies: Eczema, Psoriasis Psychiatric Medical History: Reports: None Hematology: Denies: Anemia, Bleeding Tendencies Social History Information Source: Patient, [facility] Records Lives with: Spouse/Significant other Smoking Status: Never Smoker Frequency of Alcohol Use: Rare Hx Recreational Drug Use: No Drugs: None Hx Prescription Drug Abuse: No - Advance Directive Resuscitation Status: Full Code Family History Family History: denies: CAD, DM, Hypertension, Malignancy Parental Family History Reviewed: Yes Children Family History Reviewed: Yes Sibling(s) Family History Reviewed.: Yes Medication/Allergy Home Medications: Albuterol Sulfate [Albuterol Sulfate Hfa] 2 puff IH Q4H #1 hfa.[email or web address].ad 01/28/19 Allergies/Adverse Reactions: corn Adverse Reaction (Verified 01/25/19 17:25) orange Adverse Reaction (Verified 01/25/19 17:25) Review of Systems Constitutional: ABSENT: chills, fever(s), headache(s), weight gain, weight loss Eyes: ABSENT: visual disturbances Ears: ABSENT: hearing changes Cardiovascular: ABSENT: chest pain, dyspnea on exertion, edema, orthropnea, palpitations Respiratory: ABSENT: cough, hemoptysis Gastrointestinal: ABSENT: abdominal pain, constipation, diarrhea, hematemesis, hematochezia, nausea, vomiting Genitourinary: ABSENT: dysuria, hematuria Musculoskeletal: ABSENT: joint swelling Integumentary: ABSENT: rash, wounds Neurological: ABSENT: abnormal gait, abnormal speech, confusion, dizziness, focal weakness, syncope Psychiatric: ABSENT: anxiety, depression, homidical ideation, suicidal ideation Endocrine: ABSENT: cold intolerance, heat intolerance, polydipsia, polyuria Hematologic/Lymphatic: ABSENT: easy bleeding, easy bruising Physical Exam Vital Signs: Temp Pulse Resp BP Pulse Ox 98.4 F 103 H 18 140/74 H 90 L 02/18/19 03:38 02/18/19 03:38 02/18/19 03:38 02/18/19 03:38 02/18/19 03:38 Intake & Output 02/16/19 02/17/19 02/18/19 11:59 11:59 11:59 Intake Total 100 Balance 100 Weight 137.1 kg General appearance: PRESENT: cooperative, mild distress, well-developed, well- nourished. ABSENT: no acute distress Head exam: PRESENT: atraumatic, normocephalic Eye exam: PRESENT: conjunctiva pink, EOMI, PERRLA. ABSENT: scleral icterus Ear exam: PRESENT: normal external ear exam Mouth exam: PRESENT: moist, tongue midline Neck exam: ABSENT: carotid bruit, JVD, lymphadenopathy, thyromegaly Respiratory exam: PRESENT: accessory muscle use, decreased breath sounds, prolonged expiratory phas, retraction, symmetrical, wheezes Cardiovascular exam: PRESENT: tachycardia. ABSENT: diastolic murmur, rubs, systolic murmur Pulses: PRESENT: normal dorsalis pedis pul Vascular exam: PRESENT: normal capillary refill GI/Abdominal exam: PRESENT: normal bowel sounds, soft. ABSENT: distended, guarding, mass, organolmegaly, rebound, tenderness Rectal exam: PRESENT: deferred Extremities exam: PRESENT: full ROM. ABSENT: calf tenderness, clubbing, pedal edema Neurological exam: PRESENT: alert, awake, oriented to person, oriented to place, oriented to time, oriented to situation, CN II-XII grossly intact. ABSENT: motor sensory deficit Psychiatric exam: PRESENT: appropriate affect, normal mood. ABSENT: homicidal ideation, suicidal ideation Skin exam: PRESENT: dry, intact, warm. ABSENT: cyanosis, rash Results Laboratory Results: 02/17/19 18:39 02/17/19 18:39 02/17/19 02/17/19 02/17/19 18:39 18:39 21:10 WBC 6.6 RBC 4.76 Hgb 15.1 Hct 44.3 MCV 93 MCH 31.7 MCHC 34.1 RDW 14.7 H Plt Count 198 Seg Neutrophils % 60.4 Carbonic Acid 1.33 HCO3/H2CO3 Ratio 19:1 ABG pH 7.39 ABG pCO2 44.2 ABG pO2 74.6 L ABG HCO3 26.1 H ABG O2 Saturation 94.8 ABG Base Excess 0.8 FiO2 ROOM AIR Sodium 140.7 Potassium 4.1 Chloride 105 Carbon Dioxide 27 Anion Gap 9 BUN 14 Creatinine 1.21 Est GFR ( Amer) > 60 Glucose 103 Calcium 9.7 Total Bilirubin 0.6 AST 34 Alkaline Phosphatase 83 Total Protein 6.9 Albumin 4.1 02/17/19 02/17/19 18:39 22:11 Troponin I < 0.012 < 0.012 NT-Pro-B Natriuret Pep 32 Impressions: Chest X-Ray 02/17/19 16:31 IMPRESSION: NO ACUTE FINDINGS. Chest/Abdomen CTA 02/17/19 21:09 IMPRESSION: 1. No CT evidence of significant pulmonary embolism within the technical limitations of this exam. 2. Volume loss of the right hemithorax associated with slightly calcified pleural thickening. Clinical correlation is advised. Consider the possibility of prior asbestos dose exposure. Assessment and Plan - Diagnosis (1) Atypical pneumonia Is this a current diagnosis for this admission?: Yes Plan: Atypical pneumonia complicated by rhinorrhea, recent hospitalization and pleural calcification. Empiric antibiotics, albuterol and Atrovent, (2) Rhinorrhea Is this a current diagnosis for this admission?: Yes Plan: Flonase (3) Acute respiratory failure with hypoxia Is this a current diagnosis for this admission?: Yes Plan: Secondary to #1, supplemental oxygen, incentive spirometry and flutter valve (4) Pleural calcification Is this a current diagnosis for this admission?: Yes Plan: Outpatient pulmonology consult - Time Time Spent with patient: 25-34 minutes - Inpatient Certification Medical Necessity: Need Close Monitoring Due to Risk of Patient Decompensation
[2019-02-18 05:53] LABS: ABSOLUTE LYMPHOCYTES (AUTO) 0.4 10^3/uL (0.5-4.7); ABSOLUTE MONOCYTES (AUTO) 0.1 10^3/uL (0.1-1.4); ABSOLUTE NEUT (AUTO) 4.4 10^3/uL (1.7-8.2); BASOPHILS % (AUTO) 0.5 % (0-2); EOSINOPHILS % (AUTO) 0.1 % (0-6); HEMATOCRIT 43.6 % (37.9-51.0); HEMOGLOBIN 14.9 g/dL (13.5-17.0); LYMPHOCYTES % (AUTO) 8.1 % (13-45); MEAN CORPUSCULAR HEMOGLOBIN 31.9 pg (27.0-33.4); MEAN CORPUSCULAR HGB CONC 34.1 g/dL (32.0-36.0); MEAN CORPUSCULAR VOLUME 94 fl (80-97); MONOCYTES % (AUTO) 1.2 % (3-13); PLATELET COUNT 192 10^3/uL (150-450); RED BLOOD COUNT 4.67 10^6/uL (4.35-5.55); RED CELL DISTRIBUTION WIDTH 14.6 % (11.5-14.0); SEGMENTED NEUTROPHILS % (AUTO) 90.1 % (42-78); TOTAL CELLS COUNTED % (AUTO) 100 %; WHITE BLOOD COUNT 4.9 10^3/uL (4.0-10.5)
[2019-02-18] MEDS: HEPARIN SOD (PORCINE) 5,000 UNIT/ML 1 ML VIAL SUBCUT SCH ×2 (05:58→13:41)
[2019-02-18 06:04] LABS: ANION GAP 14 (5-19); BLOOD UREA NITROGEN 15 mg/dL (7-20); CALCIUM 9.7 mg/dL (8.4-10.2); CARBON DIOXIDE 22 mmol/L (22-30); CHLORIDE 104 mmol/L (98-107); GLUCOSE 185 mg/dL (75-110); POTASSIUM 4.7 mmol/L (3.6-5.0)
[2019-02-18] MEDS: PREDNISONE 20 MG TABLET PO SCH ×2 (09:41→17:11)
[2019-02-18] MEDS ORDERED: AZITHROMYCIN 500 MG in DEXTROSE 5%-WATER 250 ML IV SCH (10:00)
[2019-02-18] MEDS: FLUTICASONE NASAL SPRAY 50 MCG/SPRY 120 SPRAY/16 GM NASL SCH ×2 (11:25→22:01)
[2019-02-18] MEDS ORDERED: DILTIAZEM HCL INJ 25 MG/5 ML VIAL IV ONE ×2 (13:00→15:30)
[2019-02-18] MEDS ORDERED: NORMAL SALINE 1000 ML 1,000 ML IV ONE (13:00)
--- NOTE | 2019-02-18 14:01 | EKG REPORT ---
SEVERITY:- ABNORMAL ECG - ATRIAL FIBRILLATION, V-RATE 86-152 BORDERLINE PROLONGED QT INTERVAL INCOMPLETE RBBB CONSIDER OLD TRUE POST [place] : Confirmed by: Marky Linder MD 18-Feb-2019 14:00:46
[2019-02-18] MEDS ORDERED: DILTIAZEM HCL 30 MG TABLET PO SCH (18:00)
[2019-02-18] MEDS ORDERED: DIGOXIN INJ 0.5 MG/2 ML AMPULE IV ONE (18:45)
--- NOTE | 2019-02-18 18:59 | PDOC PROGRESS REPORT ---
Subjective Progress Note for:: 02/18/19 Subjective:: The patient is a 74-year-old male with a past medical history of COPD, bronchitis, hypertension who was admitted 02/17/2019 for atypical pneumonia. Patient was seen on morning rounds. He was found sitting up to the recliner, comfortably, on supplemental oxygen via nasal cannula. He is not home O2 dependent. He reports that his breathing is significantly better; does have slight shortness of breath and up to the restroom. He does continue to have a productive cough. Overall improved. He denies fever, chills, chest pain, palpitations, abdominal pain, nausea vo miting diarrhea. He had no other questions or concerns at that time. Approximately 1 hour after my visit, I received report from nursing staff reporting that the patient had taken an [id number] energy supplement and was now showing atrial fibrillation on telemetry with an elevated heart rate of 120. He received IV fluid boluses, increased maintenance IV fluids, and diltiazem push without effect. Ultimately he was upgraded to IMCU for diltiazem drip. Reason For Visit: COPDEXACERBATION ACUTE BRONCHITIS Physical Exam Vital Signs: Temp Pulse Resp BP Pulse Ox 97.3 F 145 H 18 147/78 H 93 02/18/19 16:00 02/18/19 18:24 02/18/19 16:22 02/18/19 16:00 02/18/19 16:22 Intake & Output 02/17/19 02/18/19 02/19/19 06:59 06:59 06:59 Intake Total 350 1579 Balance 350 1579 Weight 137.1 kg General appearance: PRESENT: no acute distress, cooperative, obese, well- developed, well-nourished Head exam: PRESENT: atraumatic, normocephalic Eye exam: PRESENT: conjunctiva pink, EOMI, PERRLA. ABSENT: scleral icterus Ear exam: PRESENT: normal external ear exam Mouth exam: PRESENT: moist, tongue midline Respiratory exam: PRESENT: rhonchi, symmetrical, unlabored, other - Supplemental oxygen by nasal cannula. ABSENT: rales, wheezes Cardiovascular exam: PRESENT: RRR, +S1, +S2. ABSENT: diastolic murmur, rubs, systolic murmur Pulses: PRESENT: normal dorsalis pedis pul Vascular exam: PRESENT: normal capillary refill GI/Abdominal exam: PRESENT: normal bowel sounds, soft. ABSENT: distended, guarding, mass, organolmegaly, rebound, tenderness Rectal exam: PRESENT: deferred Extremities exam: PRESENT: full ROM. ABSENT: calf tenderness, clubbing, pedal edema Neurological exam: PRESENT: alert, awake, oriented to person, oriented to place, oriented to time, oriented to situation, CN II-XII grossly intact. ABSENT: motor sensory deficit Psychiatric exam: PRESENT: appropriate affect, normal mood. ABSENT: homicidal ideation, suicidal ideation Skin exam: PRESENT: dry, intact, warm. ABSENT: cyanosis, rash Results Laboratory Results: 02/18/19 05:00 02/18/19 05:00 02/17/19 02/17/19 02/17/19 18:39 18:39 21:10 WBC 6.6 RBC 4.76 Hgb 15.1 Hct 44.3 MCV 93 MCH 31.7 MCHC 34.1 RDW 14.7 H Plt Count 198 Seg Neutrophils % 60.4 Carbonic Acid 1.33 HCO3/H2CO3 Ratio 19:1 ABG pH 7.39 ABG pCO2 44.2 ABG pO2 74.6 L ABG HCO3 26.1 H ABG O2 Saturation 94.8 ABG Base Excess 0.8 FiO2 ROOM AIR Sodium 140.7 Potassium 4.1 Chloride 105 Carbon Dioxide 27 Anion Gap 9 BUN 14 Creatinine 1.21 Est GFR ( Amer) > 60 Glucose 103 Calcium 9.7 Total Bilirubin 0.6 AST 34 Alkaline Phosphatase 83 Total Protein 6.9 Albumin 4.1 02/18/19 02/18/19 05:00 05:00 WBC 4.9 RBC 4.67 Hgb 14.9 Hct 43.6 MCV 94 MCH 31.9 MCHC 34.1 RDW 14.6 H Plt Count 192 Seg Neutrophils % 90.1 H Carbonic Acid HCO3/H2CO3 Ratio ABG pH ABG pCO2 ABG pO2 ABG HCO3 ABG O2 Saturation ABG Base Excess FiO2 Sodium 139.9 Potassium 4.7 Chloride 104 Carbon Dioxide 22 Anion Gap 14 BUN 15 Creatinine 0.99 Est GFR ( Amer) > 60 Glucose 185 H Calcium 9.7 Total Bilirubin AST Alkaline Phosphatase Total Protein Albumin 02/17/19 02/17/19 18:39 22:11 Troponin I < 0.012 < 0.012 NT-Pro-B Natriuret Pep 32 Impressions: Chest X-Ray 02/17/19 16:31 IMPRESSION: NO ACUTE FINDINGS. Chest/Abdomen CTA 02/17/19 21:09 IMPRESSION: 1. No CT evidence of significant pulmonary embolism within the technical limitations of this exam. 2. Volume loss of the right hemithorax associated with slightly calcified pleural thickening. Clinical correlation is advised. Consider the possibility of prior asbestos dose exposure. Assessment and Plan - Diagnosis (1) Atrial fibrillation with RVR Is this a current diagnosis for this admission?: Yes Plan: Secondary to [id number] energy supplement. Received IV fluid bolus; continue maintenance fluids. Received diltiazem 20 mg IV push x2 without effect. Change albuterol to Xopenex. Patient is upgraded to IMCU on continuous cardiac telemetry. Start diltiazem drip. Continue daily aspirin therapy. Full dose Lovenox. (2) Atypical pneumonia Is this a current diagnosis for this admission?: Yes Plan: Atypical pneumonia complicated by rhinorrhea, recent hospitalization and pleural calcification. Continue empiric azithromycin. Supplemental oxygen as needed to meet saturations. Schedule and as needed nebulizer treatments. Pulmonary toilet (3) Pleural calcification Is this a current diagnosis for this admission?: Yes Plan: Outpatient pulmonology consult (4) Rhinorrhea Is this a current diagnosis for this admission?: Yes Plan: Flonase (5) Acute respiratory failure with hypoxia Is this a current diagnosis for this admission?: Yes Plan: Secondary to #1, supplemental oxygen, nebs, incentive spirometry and flutter valve - Time Time Spent with patient: 35 or more minutes Medications reviewed and adjusted accordingly: Yes Anticipated discharge: Home
[2019-02-18] MEDS: DILTIAZEM HCL/D5W 125 MG/125 ML RTUINJ IV PRN (19:33)
[2019-02-18] MEDS ORDERED: ENOXAPARIN SODIUM INJ 150 MG/1 ML DISP.SYRIN SUBCUT ONE (21:00)
[2019-02-18] MEDS: ASPIRIN 81 MG TABLET, CHEWABLE PO SCH (21:44)
[2019-02-19] MEDS: LEVALBUTEROL HCL NEB 1.25 MG/3 ML AMPUL NEB SCH ×3 (01:02→15:39)
[2019-02-19] MEDS: IPRATROPIUM BROMIDE 0.02% NEB 0.5 MG/2.5 ML AMPUL NEB SCH ×3 (01:02→15:39)
[2019-02-19 06:41] LABS: HEMATOCRIT 42.6 % (37.9-51.0); HEMOGLOBIN 14.4 g/dL (13.5-17.0); MEAN CORPUSCULAR HEMOGLOBIN 31.2 pg (27.0-33.4); MEAN CORPUSCULAR HGB CONC 33.7 g/dL (32.0-36.0); MEAN CORPUSCULAR VOLUME 93 fl (80-97); PLATELET COUNT 190 10^3/uL (150-450); RED CELL DISTRIBUTION WIDTH 14.4 % (11.5-14.0); WHITE BLOOD COUNT 8.6 10^3/uL (4.0-10.5)
[2019-02-19 07:02] LABS: ANION GAP 11 (5-19); BLOOD UREA NITROGEN 18 mg/dL (7-20); CALCIUM 9.2 mg/dL (8.4-10.2); CARBON DIOXIDE 23 mmol/L (22-30); CHLORIDE 104 mmol/L (98-107); GLUCOSE 112 mg/dL (75-110); POTASSIUM 4.5 mmol/L (3.6-5.0)
[2019-02-19] MEDS: HYDROCHLOROTHIAZIDE 25 MG TABLET PO SCH (09:34)
[2019-02-19] MEDS: PREDNISONE 20 MG TABLET PO SCH ×2 (09:35→17:03)
[2019-02-19] MEDS: LISINOPRIL 10 MG TABLET PO SCH (09:35)
[2019-02-19] MEDS: FLUTICASONE NASAL SPRAY 50 MCG/SPRY 120 SPRAY/16 GM NASL SCH ×2 (09:35→22:09)
[2019-02-19] MEDS: ENOXAPARIN SODIUM INJ 150 MG/1 ML DISP.SYRIN SUBCUT SCH ×2 (09:42→22:12)
[2019-02-19] MEDS: DILTIAZEM HCL/D5W 125 MG/125 ML RTUINJ IV PRN (09:48)
[2019-02-19] MEDS: AZITHROMYCIN 500 MG in DEXTROSE 5%-WATER 250 ML IV SCH (09:48)
[2019-02-19] MEDS ORDERED: (PENDING PHARMACY ID) (Lisinopril/Hydrochlorothiazide [Lisinopril-Hctz 20-25 Mg Tab] 1 EAC PO SCH (10:00)
--- NOTE | 2019-02-19 14:14 | PDOC PROGRESS REPORT ---
Subjective Progress Note for:: 02/19/19 Subjective:: The patient is a 74-year-old male with a past medical history of COPD, bronchitis, hypertension who was admitted 02/17/2019 for atypical pneumonia. Patient was seen on morning rounds. He was found resting in bed, comfortably, on supplemental oxygen via nasal cannula. He is not home O2 dependent. He reports that his breathing is significantly better; does have slight shortness of breath and up to the restroom. He does continue to have a productive cough, though this is also decreased. Overall improved. He denies fever, chills, chest pain, palpitations, abdominal pain, nausea vomiting diarrhea. He had no other questions or concerns at that time. No concerns per nursing. Reason For Visit: COPDEXACERBATION ACUTE BRONCHITIS Physical Exam Vital Signs: Temp Pulse Resp BP Pulse Ox 97.8 F 89 18 105/62 98 02/19/19 13:00 02/19/19 13:00 02/19/19 13:00 02/19/19 13:00 02/19/19 13:00 Intake & Output 02/18/19 02/19/19 02/20/19 06:59 06:59 06:59 Intake Total 350 1884 737 Output Total 600 0 Balance 350 1284 737 Weight 137.1 kg 137.6 kg General appearance: PRESENT: no acute distress, cooperative, obese, well- developed, well-nourished Head exam: PRESENT: atraumatic, normocephalic Eye exam: PRESENT: conjunctiva pink, EOMI, PERRLA. ABSENT: scleral icterus Ear exam: PRESENT: normal external ear exam Mouth exam: PRESENT: moist, tongue midline Neck exam: ABSENT: carotid bruit, JVD, lymphadenopathy, thyromegaly Respiratory exam: PRESENT: rhonchi, symmetrical, unlabored, wheezes, other - Supplemental oxygen by nasal cannula. ABSENT: rales Cardiovascular exam: PRESENT: irregular rhythm, +S1, +S2. ABSENT: diastolic murmur, rubs, systolic murmur Pulses: PRESENT: normal dorsalis pedis pul Vascular exam: PRESENT: normal capillary refill GI/Abdominal exam: PRESENT: normal bowel sounds, soft. ABSENT: distended, guarding, mass, organolmegaly, rebound, tenderness Rectal exam: PRESENT: deferred Extremities exam: PRESENT: full ROM. ABSENT: calf tenderness, clubbing, pedal edema Neurological exam: PRESENT: alert, awake, oriented to person, oriented to place, oriented to time, oriented to situation, CN II-XII grossly intact. ABSENT: motor sensory deficit Psychiatric exam: PRESENT: appropriate affect, normal mood. ABSENT: homicidal ideation, suicidal ideation Skin exam: PRESENT: dry, intact, warm. ABSENT: cyanosis, rash Results Laboratory Results: 02/19/19 06:00 02/19/19 06:00 02/19/19 02/19/19 06:00 06:00 WBC 8.6 RBC 4.60 Hgb 14.4 Hct 42.6 MCV 93 MCH 31.2 MCHC 33.7 RDW 14.4 H Plt Count 190 Sodium 138.1 Potassium 4.5 Chloride 104 Carbon Dioxide 23 Anion Gap 11 BUN 18 Creatinine 1.01 Est GFR ( Amer) > 60 Glucose 112 H Calcium 9.2 02/17/19 02/17/19 18:39 22:11 Troponin I < 0.012 < 0.012 NT-Pro-B Natriuret Pep 32 Impressions: Chest X-Ray 02/17/19 16:31 IMPRESSION: NO ACUTE FINDINGS. Chest/Abdomen CTA 02/17/19 21:[address]: [address] evidence of significant pulmonary embolism within the technical limitations of this exam. 2. Volume loss of the right hemithorax associated with slightly calcified pleural thickening. Clinical correlation is advised. Consider the possibility of prior asbestos dose exposure. Assessment and Plan - Diagnosis (1) Atrial fibrillation with RVR Is this a current diagnosis for this admission?: Yes Plan: Now rate controlled on diltiazem drip. Patient denies prior history of atrial fibrillation. Secondary to [id number] energy supplement, nebulizer treatment, and penumonia. Patient is upgraded to IMCU on continuous cardiac telemetry. Will transition to p.o. diltiazem. Continue daily aspirin therapy. Full dose Lovenox. Will need to discuss on term anticoagulant prior to discharge. [id number] VASc Score 2; 2.2% yearly risk (2) Atypical pneumonia Is this a current diagnosis for this admission?: Yes Plan: Atypical pneumonia complicated by rhinorrhea, recent hospitalization and pleural calcification. Continue empiric azithromycin. Supplemental oxygen as needed to meet saturations. Schedule and as needed nebulizer treatments. Pulmonary toilet (3) Pleural calcification Is this a current diagnosis for this admission?: Yes Plan: Outpatient pulmonology consult (4) Rhinorrhea Is this a current diagnosis for this admission?: Yes Plan: Flonase (5) Acute respiratory failure with hypoxia Is this a current diagnosis for this admission?: Yes Plan: Secondary to #1, supplemental oxygen, nebs, incentive spirometry and flutter valve - Time Time Spent with patient: 25-34 minutes Medications reviewed and adjusted accordingly: Yes Anticipated discharge: Home Within: within 48 hours
[2019-02-19] MEDS: DILTIAZEM HCL 60 MG TABLET PO SCH (17:03)
--- NOTE | 2019-02-19 20:45 | EKG REPORT ---
SEVERITY:- ABNORMAL ECG - SINUS RHYTHM EARLY PRECORDIAL TRANSITION, CONSIDER [place] : Confirmed by: Marky Linder MD 19-Feb-2019 20:45:07
[2019-02-19] MEDS: ASPIRIN 81 MG TABLET, CHEWABLE PO SCH (22:08)
[2019-02-20] MEDS: IPRATROPIUM BROMIDE 0.02% NEB 0.5 MG/2.5 ML AMPUL NEB SCH ×3 (00:34→16:33)
[2019-02-20] MEDS: LEVALBUTEROL HCL NEB 1.25 MG/3 ML AMPUL NEB SCH ×3 (00:34→16:33)
[2019-02-20] MEDS: DILTIAZEM HCL 60 MG TABLET PO SCH ×5 (00:55→23:33)
[2019-02-20 05:10] LABS: HEMATOCRIT 43.4 % (37.9-51.0); HEMOGLOBIN 14.9 g/dL (13.5-17.0); MEAN CORPUSCULAR HEMOGLOBIN 31.9 pg (27.0-33.4); MEAN CORPUSCULAR HGB CONC 34.3 g/dL (32.0-36.0); MEAN CORPUSCULAR VOLUME 93 fl (80-97); PLATELET COUNT 203 10^3/uL (150-450); RED BLOOD COUNT 4.67 10^6/uL (4.35-5.55); RED CELL DISTRIBUTION WIDTH 14.4 % (11.5-14.0); WHITE BLOOD COUNT 7.9 10^3/uL (4.0-10.5)
[2019-02-20] MEDS: ENOXAPARIN SODIUM INJ 150 MG/1 ML DISP.SYRIN SUBCUT SCH ×2 (09:07→21:13)
[2019-02-20] MEDS: PREDNISONE 20 MG TABLET PO SCH ×2 (09:07→18:10)
[2019-02-20] MEDS: HYDROCHLOROTHIAZIDE 25 MG TABLET PO SCH (09:07)
[2019-02-20] MEDS: LISINOPRIL 10 MG TABLET PO SCH (09:07)
[2019-02-20] MEDS: AZITHROMYCIN 500 MG in DEXTROSE 5%-WATER 250 ML IV SCH (09:13)
[2019-02-20] MEDS: FLUTICASONE NASAL SPRAY 50 MCG/SPRY 120 SPRAY/16 GM NASL SCH ×2 (09:14→21:13)
[2019-02-20 09:44] LABS: APPEARANCE,URINE CLEAR; BILIRUBIN,URINE NEGATIVE (NEGATIVE); COLOR,URINE YELLOW; GLUCOSE, URINE NEGATIVE (NEGATIVE); KETONES,URINE NEGATIVE (NEGATIVE); LEUKOCYTE ESTERASE,URINE NEGATIVE (NEGATIVE); NITRITE,URINE NEGATIVE (NEGATIVE); PROTEIN,URINE NEGATIVE (NEGATIVE); URINE SPECIFIC GRAVITY 1.011; UROBILINOGEN,URINE NEGATIVE mg/dL (<2.0)
--- NOTE | 2019-02-20 14:06 | PDOC PROGRESS REPORT ---
Subjective Progress Note for:: 02/20/19 Subjective:: The patient is a 74-year-old male with a past medical history of COPD, bronchitis, hypertension who was admitted 02/17/2019 for atypical pneumonia. Patient was seen on morning rounds. He was found resting in bed, comfortably, on room air. He reports that his breathing is significantly better; does have shortness of breath when ambulating. Cough is also improved. He denies fever, chills, chest pain, palpitations, abdominal pain, nausea vomiting diarrhea. He had no other questions or concerns at that time. No concerns per nursing. Reason For Visit: COPDEXACERBATION ACUTE BRONCHITIS Physical Exam Vital Signs: Temp Pulse Resp BP Pulse Ox 98.0 F 82 16 138/90 H 93 02/20/19 11:22 02/20/19 11:22 02/20/19 11:22 02/20/19 11:22 02/20/19 11:22 Intake & Output 02/19/19 02/20/19 02/21/19 06:59 06:59 06:59 Intake Total 1884 1568 Output Total 600 500 Balance 1284 1068 Weight 137.6 kg 136.4 kg General appearance: PRESENT: no acute distress, cooperative, obese, well- developed, well-nourished Head exam: PRESENT: atraumatic, normocephalic Eye exam: PRESENT: conjunctiva pink, EOMI, PERRLA. ABSENT: scleral icterus Ear exam: PRESENT: normal external ear exam Mouth exam: PRESENT: moist, tongue midline Respiratory exam: PRESENT: symmetrical, unlabored, wheezes - scant. ABSENT: rales, rhonchi Cardiovascular exam: PRESENT: RRR, +S1, +S2. ABSENT: diastolic murmur, rubs, systolic murmur Pulses: PRESENT: normal dorsalis pedis pul Vascular exam: PRESENT: normal capillary refill GI/Abdominal exam: PRESENT: normal bowel sounds, soft. ABSENT: distended, guarding, mass, organolmegaly, rebound, tenderness Rectal exam: PRESENT: deferred Extremities exam: PRESENT: full ROM. ABSENT: calf tenderness, clubbing, pedal edema Musculoskeletal exam: PRESENT: ambulatory Neurological exam: PRESENT: alert, awake, oriented to person, oriented to place, oriented to time, oriented to situation, CN II-XII grossly intact. ABSENT: motor sensory deficit Psychiatric exam: PRESENT: appropriate affect, normal mood. ABSENT: homicidal ideation, suicidal ideation Skin exam: PRESENT: dry, intact, warm. ABSENT: cyanosis, rash Results Laboratory Results: 02/20/19 04:36 02/19/19 06:00 02/20/19 02/20/19 04:36 09:00 WBC 7.9 RBC 4.67 Hgb 14.9 Hct 43.4 MCV 93 MCH 31.9 MCHC 34.3 RDW 14.4 H Plt Count 203 Urine Color YELLOW Urine Appearance CLEAR Urine pH 7.0 Ur Specific [place] 1.011 Urine Protein NEGATIVE Urine Glucose (UA) NEGATIVE Urine Ketones NEGATIVE Urine Blood NEGATIVE Urine Nitrite NEGATIVE Ur Leukocyte Esterase NEGATIVE Urine WBC (Auto) 1 Urine RBC (Auto) 0 02/17/19 02/17/19 18:39 22:11 Troponin I < 0.012 < 0.012 NT-Pro-B Natriuret Pep 32 Impressions: Chest X-Ray 02/17/19 16:31 IMPRESSION: NO ACUTE FINDINGS. Chest/Abdomen CTA 02/17/19 21:09 IMPRESSION: 1. No CT evidence of significant pulmonary embolism within the technical limitations of this exam. 2. Volume loss of the right hemithorax associated with slightly calcified pleural thickening. Clinical correlation is advised. Consider the possibility of prior asbestos dose exposure. Assessment and Plan - Diagnosis (1) Atrial fibrillation with RVR Is this a current diagnosis for this admission?: Yes Plan: Has converted back to normal sinus rhythm Secondary to [id number] energy supplement, nebulizer treatment, and pe numonia. Patient is upgraded to IMCU on continuous cardiac telemetry. Will transition to p.o. diltiazem. Continue daily aspirin therapy. Full dose Lovenox. Will need to discuss on term anticoagulant prior to discharge. [id number] VASc Score 2; 2.2% yearly risk (2) Atypical pneumonia Is this a current diagnosis for this admission?: Yes Plan: Improved; now maintaining oxygen saturations on room air while at rest. Did desat to the mid 80s while ambulatory on room air today. Atypical pneumonia complicated by rhinorrhea, recent hospitalization and pleural calcification. Continue empiric azithromycin; transition to p.o. Supplemental oxygen as needed to meet saturations. Schedule and as needed nebulizer treatments. Pulmonary toilet (3) Pleural calcification Is this a current diagnosis for this admission?: Yes Plan: Outpatient pulmonology consult (4) Rhinorrhea Is this a current diagnosis for this admission?: Yes Plan: Flonase (5) Acute respiratory failure with hypoxia Is this a current diagnosis for this admission?: Yes Plan: Secondary to #1, supplemental oxygen, nebs, incentive spirometry and flutter valve - Time Time Spent with patient: 25-34 minutes Medications reviewed and adjusted accordingly: Yes Anticipated discharge: Home Within: within 24 hours - Once ambulatory on room air
[2019-02-20] MEDS: ASPIRIN 81 MG TABLET, CHEWABLE PO SCH (21:13)
[2019-02-21] MEDS: IPRATROPIUM BROMIDE 0.02% NEB 0.5 MG/2.5 ML AMPUL NEB SCH ×3 (00:26→16:53)
[2019-02-21] MEDS: LEVALBUTEROL HCL NEB 1.25 MG/3 ML AMPUL NEB SCH ×3 (00:26→16:53)
[2019-02-21] MEDS: DILTIAZEM HCL 60 MG TABLET PO SCH ×4 (05:31→23:11)
[2019-02-21] MEDS: AZITHROMYCIN 250 MG TABLET PO SCH (10:55)
[2019-02-21] MEDS: PREDNISONE 20 MG TABLET PO SCH ×2 (10:55→17:51)
[2019-02-21] MEDS: LISINOPRIL 10 MG TABLET PO SCH (10:55)
[2019-02-21] MEDS: HYDROCHLOROTHIAZIDE 25 MG TABLET PO SCH (10:55)
[2019-02-21] MEDS: ENOXAPARIN SODIUM INJ 150 MG/1 ML DISP.SYRIN SUBCUT SCH ×2 (10:57→23:11)
[2019-02-21] MEDS: FLUTICASONE NASAL SPRAY 50 MCG/SPRY 120 SPRAY/16 GM NASL SCH ×2 (10:57→23:12)
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
[2019-02-21] MEDS: ASPIRIN 81 MG TABLET, CHEWABLE PO SCH (23:12)
[2019-02-22] MEDS: IPRATROPIUM BROMIDE 0.02% NEB 0.5 MG/2.5 ML AMPUL NEB SCH ×3 (00:33→17:28)
[2019-02-22] MEDS: LEVALBUTEROL HCL NEB 1.25 MG/3 ML AMPUL NEB SCH ×3 (00:33→17:28)
[2019-02-22 06:14] LABS: HEMATOCRIT 46.2 % (37.9-51.0); HEMOGLOBIN 15.7 g/dL (13.5-17.0); MEAN CORPUSCULAR HEMOGLOBIN 31.5 pg (27.0-33.4); MEAN CORPUSCULAR HGB CONC 33.9 g/dL (32.0-36.0); MEAN CORPUSCULAR VOLUME 93 fl (80-97); PLATELET COUNT 228 10^3/uL (150-450); RED BLOOD COUNT 4.97 10^6/uL (4.35-5.55); RED CELL DISTRIBUTION WIDTH 14.7 % (11.5-14.0)
[2019-02-22] MEDS: DILTIAZEM HCL 60 MG TABLET PO SCH ×4 (06:25→23:44)
[2019-02-22] MEDS: HYDROCHLOROTHIAZIDE 25 MG TABLET PO SCH (09:53)
[2019-02-22] MEDS: FLUTICASONE NASAL SPRAY 50 MCG/SPRY 120 SPRAY/16 GM NASL SCH ×2 (09:53→21:56)
[2019-02-22] MEDS: AZITHROMYCIN 250 MG TABLET PO SCH (09:54)
[2019-02-22] MEDS: ENOXAPARIN SODIUM INJ 150 MG/1 ML DISP.SYRIN SUBCUT SCH (09:54)
[2019-02-22] MEDS: LISINOPRIL 10 MG TABLET PO SCH (09:54)
[2019-02-22] MEDS: PREDNISONE 20 MG TABLET PO SCH ×2 (09:54→17:34)
--- NOTE | 2019-02-22 14:32 | PDOC PROGRESS REPORT ---
Subjective Progress Note for:: 02/22/19 Subjective:: 02/21: Patient seen and examined today. No new complaints. Still has some generalized fatigue and weakness with mild to moderate shortness of breath especially when ambulating saturations are not dropping as much when he walks. Denies chest pain nausea/vomiting/diarrhea/abdominal pain. 02/22: Reviewed CT scan more closely. I am suspicious he has sarcoidosis given the calcified hilar lymph nodes and respiratory failure. I discussed with patient at length that he will need to follow-up with a hvac sales engineer and possibly get a biopsy to rule out sarcoidosis. He states he is still short of breath but this is notably improved today. Might be able to be discharged tomorrow and patient is in agreement with this. Reason For Visit: COPDEXACERBATION ACUTE BRONCHITIS Physical Exam Vital Signs: Temp Pulse Resp BP Pulse Ox 97.6 F 85 82 H 135/85 H 90 L 02/22/19 08:24 02/22/19 11:37 02/22/19 08:35 02/22/19 11:37 02/22/19 11:37 Intake & Output 02/21/19 02/22/19 02/23/19 06:59 06:59 06:59 Intake Total 2470 2040 480 Output Total 200 600 400 Balance 2270 1440 80 Weight 134.7 kg 133.7 kg General appearance: PRESENT: no acute distress, well-developed, well-nourished Head exam: PRESENT: atraumatic, normocephalic Eye exam: PRESENT: conjunctiva pink Mouth exam: PRESENT: moist Respiratory exam: PRESENT: clear to auscultation marysol. ABSENT: rales, rhonchi, wheezes Cardiovascular exam: PRESENT: RRR. ABSENT: diastolic murmur, rubs, systolic murmur GI/Abdominal exam: PRESENT: normal bowel sounds, soft. ABSENT: distended, guarding, mass, organolmegaly, rebound, tenderness Neurological exam: PRESENT: alert, awake Psychiatric exam: PRESENT: appropriate affect, normal mood Skin exam: PRESENT: dry, intact, warm Results Laboratory Results: 02/22/19 05:47 02/19/19 06:00 02/22/19 05:47 WBC 10.0 RBC 4.97 Hgb 15.7 Hct 46.2 MCV 93 MCH 31.5 MCHC 33.9 RDW 14.7 H Plt Count 228 02/17/19 02/17/19 18:39 22:11 Troponin I < 0.012 < 0.012 NT-Pro-B Natriuret Pep 32 Impressions: Chest X-Ray 02/17/19 16:31 IMPRESSION: NO ACUTE FINDINGS. Chest/Abdomen CTA 02/17/19 21:09 IMPRESSION: 1. No CT evidence of significant pulmonary embolism within the technical limitations of this exam. 2. Volume loss of the right hemithorax associated with slightly calcified pleural thickening. Clinical correlation is advised. Consider the possibility of prior asbestos dose exposure. Assessment and Plan - Diagnosis (1) H/O asbestos exposure Is this a current diagnosis for this admission?: Yes (2) Atrial fibrillation with RVR Is this a current diagnosis for this admission?: Yes Plan: Has converted back to normal sinus rhythm Secondary to [id number] energy supplement, nebulizer treatment, and penumonia. Patient is upgraded to IMCU on continuous cardiac telemetry. Will transition to p.o. diltiazem. Continue daily aspirin therapy. Full dose Lovenox. Will need to discuss on term anticoagulant prior to discharge. [id number] VASc Score 2; 2.2% yearly risk 02/21: Treatment dose Lovenox continues, will be best served by starting oral Eliquis at discharge provided the patient/insurance can afford this. Will need cardiology follow-up as well outpatient. Started Eliquis 02/22, stopped Lovenox, cardiology to follow this medication outpatient Rate controlled on current medications, continued (3) Atypical pneumonia Is this a current diagnosis for this admission?: Yes Plan: Improved; now maintaining oxygen saturations on room air while at rest. Did desat to the mid 80s while ambulatory on room air today. Atypical pneumonia complicated by rhinorrhea, recent hospitalization and pleural calcification. Continue empiric azithromycin; transition to p.o. Supplemental oxygen as needed to meet saturations. Schedule and as needed nebulizer treatments. Pulmonary toilet 02/21: Continue antibiotics to complete 7-day course. Nebs and pulmonary toilet continue as well. Antibiotics can stop on 02/24: Oral azithromycin continues (4) Bronchitis Is this a current diagnosis for this admission?: Yes (5) Hypoxia Is this a current diagnosis for this admission?: Yes (6) Pleural calcification Is this a current diagnosis for this admission?: Yes (7) Acute respiratory failure with hypoxia Is this a current diagnosis for this admission?: Yes (8) Calcified lymph nodes Is this a current diagnosis for this admission?: Yes Plan: Suspect this may be due to underlying sarcoidosis, discussed with patient he must follow-up with pulmonology and potentially get a biopsy to rule this out - Time Time Spent with patient: 15-24 minutes - Inpatient Certification Medical Necessity: Significant Comorbidiites Make Outpatient Treatment Too Risky - Possible discharge tomorrow if continued improvement
[2019-02-22] MEDS: APIXABAN 5 MG TABLET PO SCH (17:34)
[2019-02-22] MEDS: ASPIRIN 81 MG TABLET, CHEWABLE PO SCH (21:56)
[2019-02-23] MEDS: LEVALBUTEROL HCL NEB 1.25 MG/3 ML AMPUL NEB SCH ×2 (00:50→09:58)
[2019-02-23] MEDS: IPRATROPIUM BROMIDE 0.02% NEB 0.5 MG/2.5 ML AMPUL NEB SCH ×2 (00:50→09:58)
[2019-02-23] MEDS: DILTIAZEM HCL 60 MG TABLET PO SCH ×2 (05:32→11:57)
[2019-02-23] MEDS: APIXABAN 5 MG TABLET PO SCH (09:35)
[2019-02-23] MEDS: PREDNISONE 20 MG TABLET PO SCH (09:35)
[2019-02-23] MEDS: AZITHROMYCIN 250 MG TABLET PO SCH (09:35)
[2019-02-23] MEDS: LISINOPRIL 10 MG TABLET PO SCH (09:35)
[2019-02-23] MEDS: HYDROCHLOROTHIAZIDE 25 MG TABLET PO SCH (09:36)
[2019-02-23] MEDS: FLUTICASONE NASAL SPRAY 50 MCG/SPRY 120 SPRAY/16 GM NASL SCH (09:36)
[2019-02-23 13:03] VITALS: BP 147/78
--- NOTE | 2019-02-23 13:17 | PDOC DISCHARGE SUMMARY ---
Impression - Admit/DC Date/PCP Admission Date/Primary Care Provider: 02/18/19 00:24 [facility] Discharge Date: 02/23/19 - Discharge Diagnosis (1) H/O asbestos exposure Is this a current diagnosis for this admission?: Yes (2) Atrial fibrillation with RVR Is this a current diagnosis for this admission?: Yes (3) Atypical pneumonia Is this a current diagnosis for this admission?: Yes (4) Bronchitis Is this a current diagnosis for this admission?: Yes (5) Hypoxia Is this a current diagnosis for this admission?: Yes (6) Pleural calcification Is this a current diagnosis for this admission?: Yes (7) Acute respiratory failure with hypoxia Is this a current diagnosis for this admission?: Yes (8) Calcified lymph nodes Is this a current diagnosis for this admission?: Yes - Additional Information Resuscitation Status: Full Code Discharge Diet: Cardiac Discharge Activity: Activity As Tolerated, Balance Activity w/Rest Referrals: GABE CONRAD MD [ACTIVE STAFF] - 04/03/19 12:30 pm (Follow-up in 4 to 6 weeks for evaluation of pleural calcification) [facility] [Primary Care [facility]] - Follow up as needed (patient will call and schedule) Prescriptions: Prednisone [Deltasone 10 mg Tablet] See Protocol PO ASDIR PRN #11 tablet PRN Reason: Diltiazem HCl [Diltiazem 24Hr ER] 180 mg PO DAILY #30 cap.er.24h Apixaban [Eliquis 5 mg Tablet] 5 mg PO BID #60 tablet Fluticasone Propionate [Flonase Nasal [place] 50 Mcg/[place] 16 gm] 2 spray NASL Q12 #1 spray.pump Lisinopril [Prinivil] 10 mg PO DAILY #30 tablet Home Medications: Acetaminophen [Tylenol 325 mg Tablet] 650 mg PO Q4HP PRN tablet 02/20/19 Diltiazem HCl [Diltiazem 24Hr ER] 180 mg PO DAILY #30 cap.er.24h 02/20/19 Fluticasone Propionate [Flonase Nasal [place] 50 Mcg/[place] 16 gm] 2 spray NASL Q12 #1 spray.pump 02/20/19 Guaifenesin [Robitussin Syrup 200 mg/10 ml Ud Cup] 200 mg PO Q4HP PRN udc 02/20/19 Apixaban [Eliquis 5 mg Tablet] 5 mg PO BID #60 tablet 02/23/19 Lisinopril [Prinivil] 10 mg PO DAILY #30 tablet 02/23/19 Prednisone [Deltasone 10 mg Tablet] See Protocol PO ASDIR PRN #11 tablet 02/23/19 History of Present Illiness History of Present Illness: PER ADMITTING PROVIDER: "COLEMAN WEINSTEIN is a 74 year old male with a past medical history of COPD and bronchitis requiring hospitalization 3 weeks ago. He presents with wheeze, e xertional dyspnea, rhinorrhea, postnasal drip, shortness of breath. In the emergency department he is found to have hypoxia, tachycardia and leukocytosis. CT reveals calcified pleura without infiltrate or pulmonary emboli. He receives empiric antibiotics for healthcare associated pneumonia and referred to the hospitalist for admission." Hospital Course Hospital Course: Patient admitted with new onset A. fib with RVR, converted with medication only. Chads 2 VASC score noted to be 2 and patient started on Eliquis to continue outpatient. He must have follow-up with cardiology and his PCP for them to follow this medication. Patient also noted to have atypical pneumonia treated with azithromycin and he completed the course prior to discharge. On chest imaging, it was noted that patient has significant calcified mediastinal/hilar lymph nodes which may be concerning for sarcoidosis, he also notes having exposure to a cold burning stove for many years growing up and also exposure to asbestos for many years in his adult life. He must follow-up with a lunchroom supervisor and inquire about the need for biopsy. Steroid taper at discharge and higher dose diltiazem ordered, home BP meds downgraded appropriately to account for higher diltiazem dose. Physical Exam Vital Signs: Temp Pulse Resp BP Pulse Ox 98.1 F 81 16 139/86 H 89 L 02/23/19 04:23 02/23/19 09:58 02/23/19 09:58 02/23/19 04:23 02/23/19 09:58 Intake & Output 02/22/19 02/23/19 02/24/19 06:59 06:59 06:59 Intake Total 2040 1680 Output Total 600 1510 Balance 1440 170 Weight 133.7 kg 133.6 kg General appearance: PRESENT: no acute distress, well-developed, well-nourished Head exam: PRESENT: atraumatic, normocephalic Eye exam: PRESENT: conjunctiva pink Mouth exam: PRESENT: moist Respiratory exam: PRESENT: clear to auscultation marysol. ABSENT: rales, rhonchi, wheezes Cardiovascular exam: PRESENT: RRR. ABSENT: diastolic murmur, rubs, systolic murmur GI/Abdominal exam: PRESENT: normal bowel sounds, soft. ABSENT: distended, guarding, mass, organolmegaly, rebound, tenderness Neurological exam: PRESENT: alert, awake Psychiatric exam: PRESENT: appropriate affect, normal mood Skin exam: PRESENT: dry, intact, warm Results Laboratory Results: WBC 10.0 10^3/uL (4.0-10.5) 02/22/19 05:47 RBC 4.97 10^6/uL (4.35-5.55) 02/22/19 05:47 Hgb 15.7 g/dL (13.5-17.0) 02/22/19 05:47 Hct 46.2 % (37.9-51.0) 02/22/19 05:47 MCV 93 fl (80-97) 02/22/19 05:47 MCH 31.5 pg (27.0-33.4) 02/22/19 05:47 MCHC 33.9 g/dL (32.0-36.0) 02/22/19 05:47 RDW 14.7 % (11.5-14.0) H 02/22/19 05:47 Plt Count 228 10^3/uL (150-450) 02/22/19 05:47 Lymph % (Auto) 8.1 % (13-45) L 02/18/19 05:00 [place] % (Auto) 1.2 % (3-13) L 02/18/19 05:00 Eos % (Auto) 0.1 % (0-6) 02/18/19 05:00 Baso % (Auto) 0.5 % (0-2) 02/18/19 05:00 Absolute Neuts (auto) 4.4 10^3/uL (1.7-8.2) 02/18/19 05:00 Absolute Lymphs (auto) 0.4 10^3/uL (0.5-4.7) L 02/18/19 05:00 Absolute Monos (auto) 0.1 10^3/uL (0.1-1.4) 02/18/19 05:00 Absolute Eos (auto) 0.0 10^3/uL (0.0-0.6) 02/18/19 05:00 Absolute Basos (auto) 0.0 10^3/uL (0.0-0.2) 02/18/19 05:00 Seg Neutrophils % 90.1 % (42-78) H 02/18/19 05:00 D-Dimer 0.54 ug/mL (0.00-0.50) H 02/17/19 18:39 Carbonic Acid 1.33 mmol/L (1.05-1.35) 02/17/19 21:10 HCO3/H2CO3 Ratio 19:1 02/17/19 21:10 ABG pH 7.39 (7.35-7.45) 02/17/19 21:10 ABG pCO2 44.2 mmHg (35-45) 02/17/19 21:10 ABG pO2 74.6 mmHg (80-100) L 02/17/19 21:10 ABG HCO3 26.1 mmol/L (20-24) H 02/17/19 21:10 ABG Total CO2 27.5 mmol/L (23-27) H 02/17/19 21:10 ABG O2 Saturation 94.8 % (94-98) 02/17/19 21:10 ABG Base Excess 0.8 mmol/L 02/17/19 21:10 FiO2 ROOM AIR 02/17/19 21:10 Sodium 138.1 mmol/L (137-145) 02/19/19 06:00 Potassium 4.5 mmol/L (3.6-5.0) 02/19/19 06:00 Chloride 104 mmol/L (98-107) 02/19/19 06:00 Carbon Dioxide 23 mmol/L (22-30) 02/19/19 06:00 Anion Gap 11 (5-19) 02/19/19 06:00 BUN 18 mg/dL (7-20) 02/19/19 06:00 Creatinine 1.01 mg/dL (0.52-1.25) 02/19/19 06:00 Est GFR ( Amer) > 60 (>60) 02/19/19 06:00 Est GFR (MDRD) Non-Af > 60 (>60) 02/19/19 06:00 Glucose 112 mg/dL (75-110) H 02/19/19 06:00 Calcium 9.2 mg/dL (8.4-10.2) 02/19/19 06:00 Total Bilirubin 0.6 mg/dL (0.2-1.3) 02/17/19 18:39 Direct Bilirubin 0.2 mg/dL (0.0-0.4) 02/17/19 18:39 Neonat Total Bilirubin Not Reportable 02/17/19 18:39 Neonat Direct Bilirubin Not Reportable 02/17/19 18:39 Neonat Indirect Bili Not Reportable 02/17/19 18:39 AST 34 U/L (17-59) 02/17/19 18:39 ALT 32 U/L (<50) 02/17/19 18:39 Alkaline Phosphatase 83 U/L (38-126) 02/17/19 18:39 Troponin I < 0.012 ng/mL 02/17/19 22:11 NT-Pro-B Natriuret Pep 32 pg/mL (<125) 02/17/19 18:39 Total Protein 6.9 g/dL (6.3-8.2) 02/17/19 18:39 Albumin 4.1 g/dL (3.5-5.0) 02/17/19 18:39 Urine Color YELLOW 02/20/19 09:00 Urine Appearance CLEAR 02/20/19 09:00 Urine pH 7.0 (5.0-9.0) 02/20/19 09:00 Ur Specific [place] 1.011 02/20/19 09:00 Urine Protein NEGATIVE mg/dL (NEGATIVE) 02/20/19 09:00 Urine Glucose (UA) NEGATIVE mg/dL (NEGATIVE) 02/20/19 09:00 Urine Ketones NEGATIVE mg/dL (NEGATIVE) 02/20/19 09:00 Urine Blood NEGATIVE (NEGATIVE) 02/20/19 09:00 Urine Nitrite NEGATIVE (NEGATIVE) 02/20/19 09:00 Urine Bilirubin NEGATIVE (NEGATIVE) 02/20/19 09:00 Urine Urobilinogen NEGATIVE mg/dL (<2.0) 02/20/19 09:00 Ur Leukocyte Esterase NEGATIVE (NEGATIVE) 02/20/19 09:00 Urine WBC (Auto) 1 /HPF 02/20/19 09:00 Urine RBC (Auto) 0 /HPF 02/20/19 09:00 Squamous Epi Cells Auto 1 /HPF 02/20/19 09:00 Urine Mucus (Auto) RARE /LPF 02/20/19 09:00 Urine Ascorbic Acid NEGATIVE (NEGATIVE) 02/20/19 09:00 02/17/19 02/17/19 18:39 22:11 Troponin I < 0.012 < 0.012 NT-Pro-B Natriuret Pep 32 Impressions: Chest X-Ray 02/17/19 16:31 IMPRESSION: NO ACUTE FINDINGS. Chest/Abdomen CTA 02/17/19 21:[address]: 1[address] evidence of significant pulmonary embolism within the technical limitations of this exam. 2. Volume loss of the right hemithorax associated with slightly calcified pleural thickening. Clinical correlation is advised. Consider the possibility of prior asbestos dose exposure. Plan Plan of Treatment: Steroid taper Eliquis and diltiazem Follow-up with PCP Follow-up with lunchroom supervisor Goals: We cannot schedule appointments at [place]. Patient will call and schedule Stroke Is this a Stroke Patient?: No Acute Heart Failure - Is this a Heart Failure Patient?: No
== END 2019-02-23 13:18 | disposition home or self-care (01) | DRG 308 ==
LOC: ER 15:24 → OBSVTOIN 02-18 00:24 → EH 02-18 00:24 → 5 02-18 02:04 → 3S 02-18 18:53
PROVIDERS: ADMIT Internal Medicine; ATTEND Internal Medicine
DX: I48.91 Unspecified atrial fibrillation (principal); J18.9 Pneumonia, unspecified organism; J96.01 Acute respiratory failure with hypoxia; J44.1 Chronic obstructive pulmonary disease with (acute) exacerbation; J94.8 Other specified pleural conditions; J44.0 Chronic obstructive pulmonary disease with (acute) lower respiratory infection; I89.8 Other specified noninfective disorders of lymphatic vessels and lymph nodes; I10 Essential (primary) hypertension; J34.89 Other specified disorders of nose and nasal sinuses; Z79.899 Other long term (current) drug therapy; Z77.090 Contact with and (suspected) exposure to asbestos; Z91.018 Allergy to other foods
CPT/HCPCS: 36415; 36600; 71046; 71275; 80048; 80053; 81001; 82803; 83880; 84484; 85025; 85027; 85379; 93005; 93010; 94640; 94667; 94668; 94799; 96365; 96375; 99285; G0378; J0456; J1160; J1644; J1650; J2930; J3475; J3490; J7030; J7060; J7512; J7620